=== PATIENT | male | born 1940 | race Caucasian/White ===

== ENCOUNTER 2018-06-06 22:06 | Inpatient (IN) ==
[2018-06-06] MEDS ORDERED: ONDANSETRON 4 MG/2 ML VIAL IV ONE (22:21)
[2018-06-06] MEDS ORDERED: LACTATED RINGERS 1,000 ML IV ONE (22:21)
--- NOTE | 2018-06-06 22:23 | Emergency Department Note ---
General Adult HPI - General Chief complaint: Dizziness Stated complaint: Dizzy and not feeling good Time Seen by Provider: 06/06/18 22:18 Mode of arrival: ambulatory - History of Present Illness HPI Narrative: This patient has felt ill for the last several days with some diarrhea cough nausea dizziness. He is coughing up some phlegm. His O2 saturation is 85% on room air. No history of chronic lung disease. - Related Data Home Medications Medication Instructions Recorded Confirmed aspirin 81 mg tablet,delayed 81 mg PO QDAY tab 08/21/14 06/02/18 release darbepoetin wilma 40 mcg/mL in 40 mcg SUB-Q Q4W PRN ml 03/03/18 06/02/18 polysorbate injection Previous Rx's Medication Instructions Recorded insulin lispro (U- 100) 100 See Dose Instructions SUB-Q 05/01/15 unit/mL subcutaneous solution .COMPLEX #3 ml simvastatin 20 mg tablet 20 mg PO QPM #90 tab 12/07/17 blood sugar diagnostic strips See Dose Instructions .ROUTE 12/08/17 .MEDSUPPLY #100 each doxazosin 4 mg tablet 8 mg PO QDAY 90 Days #180 tab 01/01/18 furosemide 40 mg tablet 40 mg PO QDAY #90 tab 02/04/18 allopurinol 100 mg tablet 100 mg PO QDAY #90 tab 03/19/18 amlodipine 10 mg tablet 10 mg PO QDAY #90 tab 03/19/18 glipizide ER 5 mg tablet, extended 5 mg PO BID #180 tab 03/19/18 release 24 hr pioglitazone 30 mg tablet 30 mg PO QDAY #90 tab 03/19/18 carvedilol 12.5 mg tablet 12.5 mg PO BID #180 tab 05/19/18 cholecalciferol (vitamin D3) 400 400 unit PO .qod #20 cap 06/02/18 unit capsule cyanocobalamin (vitamin B-12) 1,000 mcg PO QDAY #30 cap 06/02/18 1,000 mcg capsule furosemide 40 mg tablet 40 mg PO QAM PRN #20 tab 06/02/18 Allergies Allergy/AdvReac Type Severity Reaction Status Date / Time No Known Drug Allergies Allergy Verified 06/07/18 02:37 Review of Systems All systems ED: reviewed and negative except as stated. Past Medical History - Past Medical History PMF Narrative: Medical History (Last Reviewed 06/02/18 @ 11:23 by Becky Del Valle MD) Diabetes mellitus, type II (Chronic) Hypertension (Chronic) History of bladder cancer (Chronic) Adenomatous colon polyp (Chronic) Pure hypercholesterolemia (Chronic) Dizziness (Chronic) Fatigue (Chronic) Edema (Chronic) Anemia (Chronic) History of malignant neoplasm of urinary organ (Acute) Proteinuria (Chronic) Vitamin A deficiency (Acute) Hyperlipidemia (Chronic) Obesity (Acute) Dysmetabolic syndrome X (Acute) Hypercalcemia (Chronic) Hypertensive chronic kidney disease (Chronic) DDD (degenerative disc disease), lumbar (Acute) Chronic kidney disease, stage III (moderate) (Chronic) Carpal tunnel syndrome (Acute) Bone/cartilage disorder (Acute) Back pain (Acute) Anemia, iron deficiency (Acute) Past Surgical History (Last Reviewed 06/02/18 @ 11:23 by Becky Del Valle MD) History of diverticulitis (Acute) History of colonoscopy (Acute) History of cataract surgery (Acute) History of back surgery (Acute) Family History (Last Reviewed 06/02/18 @ 11:23 by Becky Del Valle MD) Father Cardiac disease Diabetes mellitus Renal failure Mother Diabetes mellitus Renal failure Hypertension Sister Diabetes mellitus Son Diabetes mellitus - Social History smoking status: Smokeless tobacco Physical Exam Limitations: no limitations General appearance: alert Head: atraumatic Eye: Present: normal appearance ENT: normal exam Neck: Present: normal inspection Chest: Present: normal inspection Respiratory: Present: normal lung sounds bilaterally Cardiovascular: Present: regular rate, normal rhythm, normal heart sounds Abdominal: Present: soft. Absent: distention, tenderness Neurological: Present: alert Psychiatric: Present: normal affect Skin: Present: warm, dry Course Vital Signs Temperature 99.0 F 06/06/18 22:07 Pulse Rate 114 H 06/06/18 22:07 Respiratory Rate 28 H 06/06/18 22:07 Blood Pressure 139/65 06/06/18 22:07 Pulse Oximetry (%) 88 L 06/06/18 22:07 Temperature 98.3 F 06/07/18 06:45 Pulse Rate 95 H 06/07/18 04:31 Respiratory Rate 20 06/07/18 06:45 Blood Pressure 129/62 06/07/18 06:45 Pulse Oximetry (%) 91 06/07/18 06:45 Medical Decision Making - [facility] Narrative Medical decision making narrative: This patient has a left-sided pneumonia and he will be admitted to the hospital by Dr. Martinez - Lab Data Lab results reviewed: Yes I reviewed the patient's lab results. Result diagrams: 06/06/18 22:36 06/06/18 22:36 Lab Results 06/06/18 06/06/18 06/06/18 Range/Units 22:36 22:36 22:36 WBC 36.9 H* (4.5-11.0) K/mcL RBC 3.38 L (4.50-5.90) M/mcL Hgb 9.5 L (13.5-16.5) g/dL Hct 30.2 L (41.0-55.0) % MCV 89.3 (80.0-100.0) fL MCH 28.2 (26.0-34.0) pg MCHC 31.6 (31.0-36.0) g/dL RDW 15.3 H (11.5-14.5) % Plt Count 223 (140-440) K/mcL MPV 9.6 (7.4-10.4) fL Gran % 29.6 L (38.0-78.0) % Lymph % (Auto) 66.4 H (15.5-49.0) % [place] % (Auto) 3.9 (1.0-12.0) % Eos % (Auto) 0 (0.0-7.0) % Baso % (Auto) 0.1 (0.0-2.0) % Gran # 10.9 H (1.8-8.0) K/mcL Lymph # (Auto) 24.5 H (1.5-4.8) K/mcL [place] # (Auto) 1.5 H (0.1-0.9) K/mcL Eos # (Auto) 0 (0.0-0.7) K/mcL Baso # (Auto) 0.1 (0.0-0.3) K/mcL Differential Comment VBG Lactic Acid 1.1 (0.5-2.0) mmol/L Sodium 134 (133-145) mmol/L Potassium 4.1 (3.3-5.1) mmol/L Chloride 104 (96-108) mmol/L Carbon Dioxide 18 L (22-30) mmol/L Anion Gap 12.0 (8-16) BUN 67 H (8-23) mg/dl Creatinine 2.6 H (0.7-1.2) mg/dl GFR Calculation 22 Glucose 219 H (70-105) mg/dL Calcium 10.2 (8.6-10.4) mg/dl Total Bilirubin 0.5 (0.0-1.0) mg/dL AST 45 H (0-37) U/l ALT 24 (0-40) U/l Alkaline Phosphatase 124 H (39-117) U/L Total Protein 5.9 (5.9-8.4) gm/dL Albumin 2.6 L (3.2-5.2) gm/dL Globulin 3.3 (2.2-3.7) gm/dL Albumin/Globulin Ratio 0.8 L (1.0-2.3) - Radiology Data Radiology results reviewed: Yes I reviewed the patient's radiology results. Disposition Pt seen by [facility]/PA only: No Clinical Impression: Pneumonia Disposition: Xfer As Inpt ([facility]) Condition: Undetermined
[2018-06-06] MEDS ORDERED: IPRATROPIUM/ALBUTEROL 3 ML AMPUL.NEB NEB ONE (23:13)
[2018-06-06 23:29] LABS: Basophils # (Auto) 0.1 K/mcL (0.0-0.3); Basophils % (Auto) 0.1 % (0.0-2.0); Eosinophils # (Auto) 0 K/mcL (0.0-0.7); Eosinophils % (Auto) 0 % (0.0-7.0); Granulocytes % (Auto) 29.6 % (38.0-78.0); Lymphocytes # (Auto) 24.5 K/mcL (1.5-4.8); Lymphocytes % (Auto) 66.4 % (15.5-49.0); Mean Cell Volume 89.3 fL (80.0-100.0); Mean Corpuscular HGB Conc 31.6 g/dL (31.0-36.0); Monocytes # (Auto) 1.5 K/mcL (0.1-0.9); Monocytes % (Auto) 3.9 % (1.0-12.0); Platelet Count 223 K/mcL (140-440); RBC 3.38 M/mcL (4.50-5.90); Red Cell Distribution Width 15.3 % (11.5-14.5)
[2018-06-06] MEDS ORDERED: cefTRIAXone 1 GM VIAL IV ONE (23:37)
[2018-06-06] MEDS ORDERED: LEVOFLOXACIN 750 MG/150 ML BAG IV ONE (23:37)
[2018-06-06 23:51] LABS: ALT/SGPT 24 U/l (0-40); Albumin 2.6 gm/dL (3.2-5.2); Albumin/Globulin Ratio 0.8 (1.0-2.3); Alkaline Phosphatase 124 U/L (39-117); Blood Urea Nitrogen 67 mg/dl (8-23)
[2018-06-07] MEDS ORDERED: DEXTROSE 50% 50 ML VIAL IV PRN ×2 (02:18→09:27)
[2018-06-07] MEDS ORDERED: DEXTROSE 31 GM ORAL.SUSP PO PRN ×2 (02:18→09:27)
[2018-06-07] MEDS ORDERED: INSULIN LISPRO 1 UNIT/0.01 ML UNIT SQ ONE (02:24)
[2018-06-07] MEDS ORDERED: INSULIN LISPRO 1 UNIT/0.01 ML UNIT SQ SCH (07:30)
--- NOTE | 2018-06-07 08:04 | Internal Med History&Physical ---
Medical - H&P: HPI Patient information: Note initiated : 06/07/18 at 8:01 am Service Date, if different from initiated Date: [] Patient: Keny Paul a 78 y/o M admitted on 06/07/18 for Dizzy, Not Feeling Good. Chief Complaint: [] History of present illness: Mr. Paul is a 78 year old M Who presented to the ED because of dizziness and not feeling well for the past for 5 days with diarrhea and some pain and he says lungs when coughing. Arrived with sats of 85% on room air. Patient reports about 2-3 weeks ago he started developing some cold symptoms sinus congestion and cough cough had some bloody mucus in it he also had shortness of breath especially with exertion. This has continued to progress his cough is productive which is a clear sputum now but last night he was so short of breath at he had to come in. He is also felt wheezy like he cannot get a deep breath. Has had some diarrhea,very weak and like lightheaded. Denies fever chills. He does have a history of chronic kidney disease stage III and receives Aranesp treatments every once in a while he says maybe every other month with Dr. Del Valle. He has history of mantle cell lymphoma diagnosed about a year ago and is following with [facility] and states they have not started treatment yet in her continue to watch him, sounds like he has a follow-up appointment in June. In the ED in triage was 85% on room air. Found to have left-sided dense infiltrate. He had leukocytosis, which she has a baseline but much higher. Renal function was little worse than usual. Blood pressure was okay. Review of Systems: Pertinent positives as above. Denies headache/fever/chills/nausea/vomiting/chest or abdominal pain. Remaining 10 po int review of systems reviewed negative Medical - H&P: PMH Medical history: Medical History (Last Reviewed 06/02/18 @ 11:23 by Becky Del Valle MD) Diabetes mellitus, type II (Chronic) Hypertension (Chronic) History of bladder cancer (Chronic) Adenomatous colon polyp (Chronic) Pure hypercholesterolemia (Chronic) Dizziness (Chronic) Fatigue (Chronic) Edema (Chronic) Anemia (Chronic) History of malignant neoplasm of urinary organ (Acute) Proteinuria (Chronic) Vitamin A deficiency (Acute) Hyperlipidemia (Chronic) Obesity (Acute) Dysmetabolic syndrome X (Acute) Hypercalcemia (Chronic) Hypertensive chronic kidney disease (Chronic) DDD (degenerative disc disease), lumbar (Acute) Chronic kidney disease, stage III (moderate) (Chronic) Carpal tunnel syndrome (Acute) Bone/cartilage disorder (Acute) Back pain (Acute) Anemia, iron deficiency (Acute) Past Surgical History (Last Reviewed 06/02/18 @ 11:23 by Becky Del Valle MD) History of diverticulitis (Acute) History of colonoscopy (Acute) History of cataract surgery (Acute) History of back surgery (Acute) Family History (Last Reviewed 06/02/18 @ 11:23 by Becky Del Valle MD) Father Cardiac disease Diabetes mellitus Renal failure Mother Diabetes mellitus Renal failure Hypertension Sister Diabetes mellitus Son Diabetes mellitus Social History (Last Updated 06/02/18 @ 12:17 by Becky Del Valle MD) -Quit smoking a year ago Denies alcohol use Does not use a cane or walker to get around Lives at home with his Medical - H&P: Meds Home Medications Medication Instructions Recorded Confirmed Type aspirin 81 mg tablet,delayed 81 mg PO QDAY tab 08/21/14 06/02/18 History release insulin lispro (U- 100) 100 See Dose Instructions SUB-Q 05/01/15 06/02/18 Rx unit/mL subcutaneous solution .COMPLEX #3 ml simvastatin 20 mg tablet 20 mg PO QPM #90 tab 12/07/17 06/02/18 Rx blood sugar diagnostic strips See Dose Instructions .ROUTE 12/08/17 03/03/18 Rx .MEDSUPPLY #100 each doxazosin 4 mg tablet 8 mg PO QDAY 90 Days #180 tab 01/01/18 06/02/18 Rx furosemide 40 mg tablet 40 mg PO QDAY #90 tab 02/04/18 06/02/18 Rx darbepoetin wilma 40 mcg/mL in 40 mcg SUB-Q Q4W PRN ml 03/03/18 06/02/18 History polysorbate injection allopurinol 100 mg tablet 100 mg PO QDAY #90 tab 03/19/18 06/02/18 Rx amlodipine 10 mg tablet 10 mg PO QDAY #90 tab 03/19/18 06/02/18 Rx glipizide ER 5 mg tablet, extended 5 mg PO BID #180 tab 03/19/18 06/02/18 Rx release 24 hr pioglitazone 30 mg tablet 30 mg PO QDAY #90 tab 03/19/18 06/02/18 Rx carvedilol 12.5 mg tablet 12.5 mg PO BID #180 tab 05/19/18 06/02/18 Rx cholecalciferol (vitamin D3) 400 400 unit PO .qod #20 cap 06/02/18 06/02/18 Rx unit capsule cyanocobalamin (vitamin B-12) 1,000 mcg PO QDAY #30 cap 06/02/18 06/02/18 Rx 1,000 mcg capsule furosemide 40 mg tablet 40 mg PO QAM PRN #20 tab 06/02/18 06/02/18 Rx Allergies Allergy/AdvReac Type Severity Reaction Status Date / Time No Known Drug Allergies Allergy Verified 06/07/18 02:37 Medical - H&P: Exam - Constitutional Vitals: Temp Pulse Resp BP Pulse Ox 98.3 F 95 H 20 129/62 91 06/07/18 06:45 06/07/18 04:31 06/07/18 06:45 06/07/18 06:45 06/07/18 06:45 Exam: General: Alert, Awake, No acute Distress Eyes/N/T: EOMI, PEERL, DMM Head/Neck: neck supple, normocephalic atraumatic CV: Mildly tacky, 1/6 SM Pulm: Diminished breath sounds on the left, no wheezing abd: soft, nontender, +BS x4 Ext: no clubbing/cyanosis. 1+ edema right lower extremity, mild on the left Neuro: Alert, no focal deficits, moves all extremities, CN 2-12 grossly intact, symmetrical strength b/l upper/lower, sensations intact b/l upper/lower Skin: warm/dry Medical - H&P: Reslt - Labs CBC & Chem 7: 06/06/18 22:36 06/06/18 22:36 Labs: Short CBC 06/06/18 Range/Units 22:36 WBC 36.9 H* (4.5-11.0) K/mcL Hgb 9.5 L (13.5-16.5) g/dL Hct 30.2 L (41.0-55.0) % Plt Count 223 (140-440) K/mcL BMP 06/06/18 22:36 Sodium 134 Potassium 4.1 Chloride 104 Carbon Dioxide 18 L BUN 67 H Creatinine 2.6 H Glucose 219 H Calcium 10.2 Liver Function 06/06/18 Range/Units 22:36 Total Bilirubin 0.5 (0.0-1.0) mg/dL AST 45 H (0-37) U/l ALT 24 (0-40) U/l Alkaline Phosphatase 124 H (39-117) U/L Albumin 2.6 L (3.2-5.2) gm/dL - Impressions Chest x-ray with left lower lobe infiltrate Medical - H&P: A/P - Narrative A/P Narrative: A: *PNA: *Acute hypoxic respiratory failure: *LYLE on CKD III: follows with dr. del valle *Recent diagnosis of mantle cell lymphoma 1-yr ago: shae with [facility] *HTN: *Obesity: *DM: * P: -Abx, pending BC/SC -pending PCT -IVF -IS/Acapella -Follow-up CT in the morning given his underlying CA -chest u/s for left effusion? -SSI -pt/ot -ppx: heparin Medical - H&P: Qual - VTE Deep Vein Thrombosis/Pulmonary Embolism Present on Admission: No
[2018-06-07] MEDS ORDERED: 0.9 % SODIUM CHLORIDE 1,000 ML IV SCH (08:15)
--- NOTE | 2018-06-07 08:29 | XRay Report ---
CLINICAL INFORMATION: cough COMPARISON: 05/12/2014 FINDINGS: Moderate cardiomegaly is unchanged. Mediastinum and pulmonary vessels are normal. Moderate consolidated infiltrate has developed in the left mid/lower lung with moderate pleural effusion. IMPRESSION: Moderate infiltrate left mid/lower lung with moderate effusion Interpreted and Authenticated by: Marcos Lopez 06/07/18
[2018-06-07] MEDS ORDERED: cefTRIAXone 1 GM VIAL IV ONE ×2 (09:00→09:27)
[2018-06-07] MEDS ORDERED: HEPARIN 5,000 UNIT/ML VIAL SQ SCH (09:00)
[2018-06-07] MEDS ORDERED: MAGNESIUM SULFATE 2 GM/50 ML BAG IV PRN (09:27)
[2018-06-07] MEDS ORDERED: IPRATROPIUM/ALBUTEROL 3 ML AMPUL.NEB NEB PRN (09:27)
[2018-06-07] MEDS ORDERED: PROMETHAZINE 25 MG TABLET PO PRN (09:27)
[2018-06-07] MEDS ORDERED: POTASSIUM CHLORIDE 40 MEQ in DEXTROSE 5% IN WATER 500 ML IV PRN (09:27)
[2018-06-07] MEDS ORDERED: POTASSIUM CHLORIDE 20 MEQ TABLET PO PRN ×2 (09:27)
[2018-06-07] MEDS ORDERED: ONDANSETRON 4 MG/2 ML VIAL IV PRN (09:27)
[2018-06-07 10:20] LABS: Hypochromasia 1+ (NONE SEEN); Lymphocytes % 47 % (15-49); Monocytes % (Manual) 7 % (1-12); Platelet Estimate NORMAL (NORMAL); RBC Morphology ABNORM (NORMAL); Segmented Neutrophils % 25 % (38-78)
[2018-06-07] MEDS: 0.9 % SODIUM CHLORIDE 1,000 ML IV SCH ×2 (10:48→20:42)
[2018-06-07] MEDS: AZITHROMYCIN 500 MG in DEXTROSE 5% IN WATER 250 ML IV SCH (10:48)
--- NOTE | 2018-06-07 12:04 | XRay Report ---
CLINICAL INFORMATION: Post Thoracentesis COMPARISON: 06/06/2018 2221 hours FINDINGS: Following left thoracentesis, there is no residual left pleural effusion. Moderate patchy infiltrate left mid and lower lung shows slight improvement. Moderate cardiomegaly is unchanged. Mediastinum and pulmonary vessels are normal. Small right pleural effusion appreciated. IMPRESSION: 1. No left pneumothorax or other complication following left thoracentesis. Small residual left pleural effusion 2. Moderate patchy left mid/lower lung infiltrate improving Interpreted and Authenticated by: Marcos Lopez 06/07/18
--- NOTE | 2018-06-07 12:18 | Ultrasound Report ---
Ultrasound-guided thoracentesis CLINICAL INFORMATION: Moderate left pleural effusion TECHNIQUE: Procedure and risks including possibility of bleeding, infection, and pneumothorax were explained to the patient. They understood and wished to proceed. With the patient in upright position, the fluid was first sonographically localized over the posterior left 10th intercostal space at posterior axillary line. The skin overlying this region was marked, prepped and locally anesthetized with 1% lidocaine using a 25-gauge needle to the level the parietal pleura. An 18-gauge [employer] needle was then advanced under sonographic guidance into the pleural fluid and approximately 575 cc of simple appearing transudative fluid was aspirated. Post procedure scanning shows only minimal residual fluid. Patient tolerated procedure well without apparent complication. Follow-up chest x-ray to be obtained IMPRESSION: Successful thoracentesis yielding 575 cc of transudative appearing simple pleural fluid. No apparent complication Interpreted and Authenticated by: Marcos Lopez 06/07/18
[2018-06-07 12:54] LABS: pH,Body Fluid 7.68
[2018-06-07 13:04] LABS: Glucose,Pleural Fluid 184 mg/dL; LDH,Pleural Fluid 97 U/L
[2018-06-07] MEDS: IPRATROPIUM/ALBUTEROL 3 ML AMPUL.NEB NEB SCH ×2 (13:18→19:11)
[2018-06-07 13:33] LABS: Appearance,Pleural Fluid CLEAR; Color,Pleural Fluid STRAW; Lymphocytes,Pleural Fluid 20 %; Monocytes,Pleural Fluid 8 %; Neutrophils,Pleural Fluid 31 %; Nucleated Cells,Pleural Fld 59 /cumm; RBC,Pleural Fluid < 50000 /cumm
[2018-06-07] MEDS ORDERED: cefTRIAXone 2 GM in DEXTROSE 5% IN WATER 50 ML IV SCH (15:00)
[2018-06-07] MEDS: INSULIN LISPRO 1 UNIT/0.01 ML UNIT SQ SCH ×3 (15:28→21:31)
[2018-06-07] MEDS: 0.9 % SODIUM CHLORIDE 10 ML SYRINGE IV SCH ×2 (15:29→20:59)
[2018-06-07] MEDS: FAMOTIDINE 20 MG TABLET PO SCH (20:53)
[2018-06-07] MEDS: HEPARIN 5,000 UNIT/ML VIAL SQ SCH (20:56)
[2018-06-08] MEDS: IPRATROPIUM/ALBUTEROL 3 ML AMPUL.NEB NEB SCH ×4 (00:10→19:05)
[2018-06-08] MEDS: PIPERACILLIN SODIUM/TAZOBACTAM 3.375 GM in DEXTROSE 5% IN WATER 50 ML IV SCH ×2 (00:10→05:51)
[2018-06-08 05:41] LABS: Basophils # (Auto) 0 K/mcL (0.0-0.3); Basophils % (Auto) 0.1 % (0.0-2.0); Eosinophils # (Auto) 0 K/mcL (0.0-0.7); Eosinophils % (Auto) 0.1 % (0.0-7.0); Granulocytes % (Auto) 24.1 % (38.0-78.0); Lymphocytes # (Auto) 18.1 K/mcL (1.5-4.8); Lymphocytes % (Auto) 72.9 % (15.5-49.0); Mean Corpuscular HGB Conc 31.6 g/dL (31.0-36.0); Monocytes # (Auto) 0.7 K/mcL (0.1-0.9); Monocytes % (Auto) 2.8 % (1.0-12.0); Platelet Count 182 K/mcL (140-440); RBC 2.97 M/mcL (4.50-5.90); Red Cell Distribution Width 15.4 % (11.5-14.5)
[2018-06-08] MEDS: 0.9 % SODIUM CHLORIDE 10 ML SYRINGE IV SCH ×2 (05:52→15:23)
[2018-06-08 05:59] LABS: ALT/SGPT 33 U/l (0-40); Albumin 2.2 gm/dL (3.2-5.2); Albumin/Globulin Ratio 0.8 (1.0-2.3); Alkaline Phosphatase 103 U/L (39-117); Bilirubin,Direct < 0.2 mg/dL (0.0-0.3); Blood Urea Nitrogen 58 mg/dl (8-23); Gamma Glutamyl Transpeptidase 20 U/L (8-61); Uric Acid 10.3 mg/dL (2.5-8.0)
--- NOTE | 2018-06-08 07:40 | Internal Med Progress Note ---
Medical - PN: Subj Patient information: Note initiated : 06/08/18 at 7:24 am Service Date, if different from initiated Date: [] Patient: Keny Paul a 78 y/o M admitted on 06/07/18 for Dizzy, Not Feeling Good. Chief Complaint: [] Interval history: Mr. Paul is a 78 year old M Who presented to the ED because of dizziness and not feeling well for the past for 5 days with diarrhea and some pain and he says lungs when coughing. Arrived with sats of 85% on room air. Patient reports about 2-3 weeks ago he started developing some cold symptoms sinus congestion and cough cough had some bloody mucus in it he also had shortness of breath especially with exertion. This has continued to progress his cough is productive which is a clear sputum now but last night he was so short of breath at he had to come in. He is also felt wheezy like he cannot get a deep breath. Has had some diarrhea,very weak and like lightheaded. Denies fever chills. He does have a history of chronic kidney disease stage III and receives Aranesp treatments every once in a while he says maybe every other month with Dr. Del Valle. He has history of mantle cell lymphoma diagnosed about a year ago and is following with [facility] and states they have not started treatment yet in her continue to watch him, sounds like he has a follow-up appointment in June. In the ED in triage was 85% on room air. Found to have left-sided dense infiltrate. He had leukocytosis, which she has a baseline but much higher. Renal function was little worse than usual. Blood pressure was okay. 06/08 Increased oxygen supplementation oximetric last night. But now down to 4 L nasal cannula with sats low 90s. He feels his cough is significantly decreased. He feels like his shortness of breath is also improved even though still requiring oxygen. Denies any other pains or complaints. Review of Systems: denies headache/fever/chills/nausea/vomiting/chest or abdominal pain/diarrhea. Otherwise see above. - Constitutional Vitals: Vital Signs Temp Pulse Resp BP Pulse Ox 99 F 85 22 138/62 93 06/08/18 03:49 06/08/18 06:41 06/08/18 06:41 06/08/18 03:49 06/08/18 06:39 Period Temp Pulse Resp BP Sys/Esposito Pulse Ox Last 24 Hr 98 F-102.7 F 85-109 18-32 103-143/43-65 90-93 Intake and Output 06/07/18 06/08/18 06/08/18 21:59 05:59 13:59 Intake Total 2840 800 50 Output Total 201 300 Balance 2639 500 50 Weight 94.256 kg Intake & Output: Intake & Output 06/07/18 06/08/18 06/08/18 21:59 05:59 13:59 Intake Total 2840 800 50 Output Total 201 300 Balance 2639 500 50 Weight 94.256 kg Intake: IV 2040 50 50 Sodium Chloride 0.9% 1,000 ml @ 990 100 mls/hr IV .Q10H [facility] Rx#: [id number] Zosyn 3.375 gm In Dextrose 5% 50 50 in Water 50 ml @ 100 mls/hr IV Q6H [facility] Rx#:[id number] Rocephin 2 gm In Dextrose 5% in 50 Water 50 ml @ 100 mls/hr IV Q24H [facility] Rx#:[id number] Oral 800 750 Output: Void Amount 201 300 Other: Urine Appearance Clear Urine Color Dark Yellow Light Amna Urine Odor Normal Stool Size Smear Stool Consistency Liquid # Voids 1 Exam: General: Alert, Awake, No acute Distress Eyes/N/T: EOMI, Head/Neck: neck supple, CV: RRR, 1/6 SM Pulm: rales more so on the left, no wheezing abd: soft, nontender, +BS x4 Ext: no clubbing/cyanosis. mile LE edema Neuro: Alert, no focal deficits, moves all extremities, Skin: warm/dry Medical - PN: Obj Da - Labs CBC & Chem 7: 06/08/18 04:05 06/08/18 04:05 Labs: Abnormal Lab Results 06/08/18 06/08/18 06/07/18 04:05 04:05 09:08 WBC 24.8 H RBC 2.97 L Hgb 8.4 L Hct 26.5 L RDW 15.4 H Gran % 24.1 L Lymph % (Auto) 72.9 H Gran # Lymph # (Auto) 18.1 H Glenn # (Auto) Seg Neutrophils % Reactive Lymphocytes RBC Morphology Hypochromasia PT 17.1 H INR 1.4 H Carbon Dioxide 18 L BUN 58 H Creatinine 2.5 H Glucose 150 H Uric Acid 10.3 H AST 46 H Alkaline Phosphatase Lactate Dehydrogenase 299 H Albumin 2.2 L Total Protein 5.1 L Albumin/Globulin Ratio 0.8 L 06/07/18 06/07/18 06/06/18 09:08 08:00 22:36 WBC RBC Hgb Hct RDW Gran % Lymph % (Auto) Gran # Lymph # (Auto) Glenn # (Auto) Seg Neutrophils % 25 L Reactive Lymphocytes 21 H RBC Morphology Abnorm A Hypochromasia 1+ A PT INR Carbon Dioxide 18 L BUN 67 H Creatinine 2.6 H Glucose 219 H Uric Acid AST 45 H Alkaline Phosphatase 124 H Lactate Dehydrogenase 267 H Albumin 2.6 L Total Protein Albumin/Globulin Ratio 0.8 L 06/06/18 22:36 WBC 36.9 H* RBC 3.38 L Hgb 9.5 L Hct 30.2 L RDW 15.3 H Gran % 29.6 L Lymph % (Auto) 66.4 H Gran # 10.9 H Lymph # (Auto) 24.5 H Glenn # (Auto) 1.5 H Seg Neutrophils % Reactive Lymphocytes RBC Morphology Hypochromasia PT INR Carbon Dioxide BUN Creatinine Glucose Uric Acid AST Alkaline Phosphatase Lactate Dehydrogenase Albumin Total Protein Albumin/Globulin Ratio Meds: Medications Albuterol/Ipratropium (Duoneb) 3 ml NEB Q6HRT [facility] Last Admin: 06/08/18 06:35 Dose: 3 ml Documented by: Albuterol/Ipratropium (Duoneb) 3 ml NEB Q4HP PRN PRN Reason: Shortness Of Breath Dextrose (Dextrose 50%) 0 ml IV UD PRN PRN Reason: Hypoglycemia Diagnostic Test (Pha) (Accu-Chek) 1 each FS ACHS [facility] Last Admin: 06/07/18 20:58 Dose: 1 each Documented by: Famotidine (Pepcid) 20 mg PO HS [facility] Last Admin: 06/07/18 20:53 Dose: 20 mg Documented by: Glucose (Insta-Glucose) 15 gm PO PRN PRN PRN Reason: Hypoglycemia Heparin Sodium (Porcine) (Heparin) 5,000 unit SQ Q12 [facility] Last Admin: 06/07/18 20:56 Dose: 5,000 unit Documented by: Azithromycin 500 mg/ Dextrose 250 mls @ 250 mls/hr IV Q24H [facility]; Protocol Stop: 06/09/18 10:59 Last Infusion: 06/07/18 11:48 Dose: Infused Documented by: Potassium Chloride 40 meq/ (Dextrose) 520 mls @ 130 mls/hr IV UD PRN PRN Reason: Potassium < 3 Magnesium Sulfate (Magnesium Sulfate) 2 gm in 50 mls @ 50 mls/hr IV UD PRN PRN Reason: Magnesium </= 1.6 Piperacillin Sod/Tazobactam (Sod 2.25 gm/ Dextrose) 50 mls @ 100 mls/hr IV Q6H [facility] Insulin Human Lispro (Humalog) 0 unit SQ ACHS [facility]; Protocol Last Admin: 06/07/18 21:31 Dose: 4 unit Documented by: Ondansetron HCl (Zofran) 4 mg IV Q4HP PRN PRN Reason: Nausea And Vomiting Potassium Chloride (Kdur) 40 meq PO UD PRN PRN Reason: Potssium is 3-3.5 Potassium Chloride (Kdur) 40 meq PO UD PRN PRN Reason: Potassium < 3 Promethazine HCl (Phenergan) 0 mg PO Q6HP PRN PRN Reason: Nausea And Vomiting Sodium Chloride (Saline Flush) 10 ml IV Q8 [facility] Last Admin: 06/08/18 05:52 Dose: Not Given Documented by: Medical - PN: A/P - Time Spent With Patient Total time spent is greater than 50% in coordination of care (as documented) at patient's floor/unit and/or counseling patient: - Narrative A/P Narrative: A: *PNA (NACHO/LLL dense consolidation noted on CT): - *Left pleural effusion: -s/p thoracentesis of 575cc, transudate by Light's criteria. *Acute hypoxic respiratory failure: 2/2 above -currently 4L NC sats low 90's *?underlying COPD: *LYLE on CKD III: follows with dr. del valle *Anemia, chronic: *Recent diagnosis of mantle cell lymphoma 1-yr ago: [facility] *h/o leukocytosis: 2/2 mantle cell lymphoma: has upcoming appt with [facility] *HTN: *Obesity: *DM: P: -Abx, broaden b/c of persistent fevers and PCT -pending BC/SC -IS/Acapella -SSI -pt/ot -f/u with cancer center as scheduled -ppx: heparin Medical - PN: Qual - VTE Deep Vein Thrombosis/Pulmonary Embolism Present on Admission: No
[2018-06-08] MEDS: HEPARIN 5,000 UNIT/ML VIAL SQ SCH ×2 (07:54→21:18)
[2018-06-08] MEDS: INSULIN LISPRO 1 UNIT/0.01 ML UNIT SQ SCH ×4 (07:54→21:39)
--- NOTE | 2018-06-08 08:40 | Cat Scan Report ---
CLINICAL INFORMATION: Shortness of breath and cough. History of lymphoma COMPARISON: PET CT 03/10/2018 TECHNIQUE: 0.625 mm axial slices were obtained from the lung apices through the bases without intravenous contrast. 2.5 mm Sagittal, coronal and axial reformatted images were processed and reviewed at bone, lung and soft tissue windows. 7 mm axial MIP images were also reconstructed to optimize pulmonary nodule detection.The exam was performed using radiation dose optimization techniques including, but not limited to, automated exposure control, adjustment of the mA and/or kV according to patient size and use of iterative reconstruction technique. FINDINGS: Pulmonary parenchymal windows show a large consolidated infiltrate throughout the posterior segment of the left upper lobe with moderate-sized more patchy infiltrate in the anterior segment left upper lobe, lingula and throughout the left lower lobe. In the right lung, smaller patchy infiltrates or atelectasis noted in both posterior upper, middle and lower lobes. Moderate right and small left pleural effusions are present. Mediastinal windows show mild enlargement central pulmonary arteries suggesting pulmonary hypertension. Noncontrast thoracic aorta is normal in contour and caliber. The heart is mildly enlarged with scattered calcific plaque in the coronary arteries and also calcification of both the mitral annulus and aortic valves. Since the comparison CT PET three months prior, multiple large lymph nodes have developed in the lower mediastinum. The largest conglomerate spans 3 cm in the subcarinal region. There are also enlarged lymph nodes in the AP window, periaortic arch and lower paratracheal regions. Previously, there was no adenopathy in these areas. Esophagus is normal. Thyroid is unremarkable. Bones and soft tissues the chest wall are normal. Images through the abdomen show moderate splenic enlargement: 14 x 7 cm. it is unchanged from previous study however. The visualized noncontrasted liver, adrenal glands and pancreas are normal. IMPRESSION: 1. Large consolidated infiltrate throughout the posterior segment left upper lobe with moderate patchy infiltrate in the anterior segment left upper lobe, lingula and left lower lobe with a small left pleural effusion. Right lung demonstrates only minimal patchy infiltrates predominantly in the posterior upper, middle lower lobes. Moderate right pleural effusion noted. Infection or aspiration is suspected. 2. Multiple enlarged lower mediastinal lymph nodes developing since comparison CT three months prior.These are likely benign reactive lymph nodes related to infection rather than recurrent lymphoma. 3. Moderate splenomegaly - stable Interpreted and Authenticated by: Marcos Lopez 06/08/18
[2018-06-08] MEDS ORDERED: cefTRIAXone 2 GM in DEXTROSE 5% IN WATER 50 ML IV SCH (09:00)
[2018-06-08] MEDS ORDERED: AZITHROMYCIN 500 MG in DEXTROSE 5% IN WATER 250 ML IV SCH (10:00)
[2018-06-08] MEDS: ALLOPURINOL 100 MG TABLET PO SCH (11:20)
[2018-06-08] MEDS: AZITHROMYCIN 500 MG in DEXTROSE 5% IN WATER 250 ML IV SCH (11:21)
[2018-06-08] MEDS: PIPERACILLIN SODIUM/TAZOBACTAM 2.25 GM in DEXTROSE 5% IN WATER 50 ML IV SCH ×2 (12:31→17:55)
[2018-06-08] MEDS ORDERED: FUROSEMIDE 40 MG TABLET PO PRN (12:34)
[2018-06-08] MEDS: FAMOTIDINE 20 MG TABLET PO SCH (21:17)
[2018-06-08] MEDS: CARVEDILOL 6.25 MG TABLET PO SCH (21:17)
[2018-06-08] MEDS: SIMVASTATIN 20 MG TABLET PO SCH (21:17)
[2018-06-09] MEDS: IPRATROPIUM/ALBUTEROL 3 ML AMPUL.NEB NEB SCH ×4 (00:51→19:41)
[2018-06-09] MEDS: 0.9 % SODIUM CHLORIDE 10 ML SYRINGE IV SCH ×4 (00:51→20:49)
[2018-06-09] MEDS: PIPERACILLIN SODIUM/TAZOBACTAM 2.25 GM in DEXTROSE 5% IN WATER 50 ML IV SCH ×5 (00:51→23:05)
[2018-06-09 05:51] LABS: Basophils # (Auto) 0 K/mcL (0.0-0.3); Basophils % (Auto) 0.2 % (0.0-2.0); Eosinophils # (Auto) 0.1 K/mcL (0.0-0.7); Eosinophils % (Auto) 0.3 % (0.0-7.0); Lymphocytes # (Auto) 16.5 K/mcL (1.5-4.8); Lymphocytes % (Auto) 75.8 % (15.5-49.0); Mean Cell Volume 88.6 fL (80.0-100.0); Mean Corpuscular HGB Conc 31.4 g/dL (31.0-36.0); Monocytes # (Auto) 0.8 K/mcL (0.1-0.9); Monocytes % (Auto) 3.7 % (1.0-12.0); Platelet Count 178 K/mcL (140-440); RBC 2.91 M/mcL (4.50-5.90); Red Cell Distribution Width 15.4 % (11.5-14.5)
[2018-06-09 06:04] LABS: ALT/SGPT 46 U/l (0-40); Albumin 1.9 gm/dL (3.2-5.2); Albumin/Globulin Ratio 0.6 (1.0-2.3); Alkaline Phosphatase 123 U/L (39-117); Bilirubin,Direct < 0.2 mg/dL (0.0-0.3); Blood Urea Nitrogen 63 mg/dl (8-23); Gamma Glutamyl Transpeptidase 26 U/L (8-61); Uric Acid 9.9 mg/dL (2.5-8.0)
[2018-06-09] MEDS: INSULIN LISPRO 1 UNIT/0.01 ML UNIT SQ SCH ×4 (07:30→20:49)
--- NOTE | 2018-06-09 08:04 | Internal Med Progress Note ---
Medical - PN: Subj Patient information: Note initiated : 06/09/18 at 7:54 am Service Date, if different from initiated Date: [] Patient: Keny Paul a 78 y/o M admitted on 06/07/18 for Dizzy, Not Feeling Good. Chief Complaint: [] Interval history: Mr. Paul is a 78 year old M Who presented to the ED because of dizziness and not feeling well for the past for 5 days with diarrhea and some pain and he says lungs when coughing. Arrived with sats of 85% on room air. Patient reports about 2-3 weeks ago he started developing some cold symptoms sinus congestion and cough cough had some bloody mucus in it he also had shortness of breath especially with exertion. This has continued to progress his cough is productive which is a clear sputum now but last night he was so short of breath at he had to come in. He is also felt wheezy like he cannot get a deep breath. Has had some diarrhea,very weak and like lightheaded. Denies fever chills. He does have a history of chronic kidney disease stage III and receives Aranesp treatments every once in a while he says maybe every other month with Dr. Nash. He has history of mantle cell lymphoma diagnosed about a year ago and is following with [facility] and states they have not started treatment yet in her continue to watch him, sounds like he has a follow-up appointment in June. In the ED in triage was 85% on room air. Found to have left-sided dense infiltrate. He had leukocytosis, which she has a baseline but much higher. Renal function was little worse than usual. Blood pressure was okay. 06/08 Increased oxygen supplementation oximetric last night. But now down to 4 L nasal cannula with sats low 90s. He feels his cough is significantly decreased. He feels like his shortness of breath is also improved even though still requiring oxygen. Denies any other pains or complaints. 06/09 Patient states he feels better with no real cough and says his shortness of breath is better however he still on 4-6 L of either nasal cannula or oxygen mask. Nursing staff state he is better oxygenating when he sitting up. Urine output is low however he is urinated over the half few times over the past couple days, so we do not have accurate outputs. But his creatinine has not improved in fact is slightly worsened. Trying to obtain urine studies and Place [facility]. He renal ultrasound just finished. Chest x-ray with some interstitial edema. Will check BNP although likely to be abnormal in the setting of renal dysfunction and will try Lasix. As well as nephrology consult Denies any other complaints. Review of Systems: denies headache/fever/chills/nausea/vomiting/chest or abdominal pain/diarrhea. Otherwise see above. - Constitutional Vitals: Vital Signs Temp Pulse Resp BP Pulse Ox 97.2 F 71 26 H 117/53 96 06/09/18 03:59 06/09/18 03:59 06/09/18 03:59 06/09/18 03:59 06/09/18 03:59 Period Temp Pulse Resp BP Sys/Esposito Pulse Ox Last 24 Hr 97.2 F-98.7 F 71-98 16-28 92-130/47-64 86-96 Intake and Output 06/08/18 06/09/18 06/09/18 21:59 05:59 13:59 Intake Total 170 150 Balance 170 150 Weight 94.574 kg Intake & Output: Intake & Output 06/08/18 06/09/18 06/09/18 21:59 05:59 13:59 Intake Total 170 150 Balance 170 150 Weight 94.574 kg Intake: IV 50 50 Zosyn 2.25 gm In Dextrose 5% in 50 50 Water 50 ml @ 100 mls/hr IV Q6H [facility] Rx#:[id number] Oral 120 100 Other: Stool Size Small Stool Color Brown Green Stool Consistency Soft Watery # Voids 1 Exam: General: Alert, Awake, No acute Distress Eyes/N/T: EOMI, Head/Neck: neck supple, CV: RRR, 1/6 SM Pulm: rales b/l, no wheezing abd: soft, nontender, +BS x4 Ext: no clubbing/cyanosis. 1+ LLE edema, no edema RLE Neuro: Alert, no focal deficits, moves all extremities, Skin: warm/dry Medical - PN: Obj Da - Labs CBC & Chem 7: 06/09/18 03:55 06/09/18 03:55 Labs: Abnormal Lab Results 06/09/18 06/09/18 06/08/18 03:55 03:55 04:05 WBC 21.8 H RBC 2.91 L Hgb 8.1 L Hct 25.8 L RDW 15.4 H Gran % 20.0 L Lymph % (Auto) 75.8 H Gran # Lymph # (Auto) 16.5 H Bollinger # (Auto) Seg Neutrophils % Reactive Lymphocytes RBC Morphology Hypochromasia PT INR Carbon Dioxide 18 L 18 L BUN 63 H 58 H Creatinine 2.9 H 2.5 H Glucose 208 H 150 H Uric Acid 9.9 H 10.3 H AST 54 H 46 H Alkaline Phosphatase 123 H ALT 46 H Lactate Dehydrogenase 295 H 299 H Albumin 1.9 L 2.2 L Total Protein 4.9 L 5.1 L Albumin/Globulin Ratio 0.6 L 0.8 L 06/08/18 06/07/18 06/07/18 04:05 09:08 09:08 WBC 24.8 H RBC 2.97 L Hgb 8.4 L Hct 26.5 L RDW 15.4 H Gran % 24.1 L Lymph % (Auto) 72.9 H Gran # Lymph # (Auto) 18.1 H Bollinger # (Auto) Seg Neutrophils % 25 L Reactive Lymphocytes 21 H RBC Morphology Abnorm A Hypochromasia 1+ A PT 17.1 H INR 1.4 H Carbon Dioxide BUN Creatinine Glucose Uric Acid AST Alkaline Phosphatase ALT Lactate Dehydrogenase Albumin Total Protein Albumin/Globulin Ratio 06/07/18 06/06/18 06/06/18 08:00 22:36 22:36 WBC 36.9 H* RBC 3.38 L Hgb 9.5 L Hct 30.2 L RDW 15.3 H Gran % 29.6 L Lymph % (Auto) 66.4 H Gran # 10.9 H Lymph # (Auto) 24.5 H Bollinger # (Auto) 1.5 H Seg Neutrophils % Reactive Lymphocytes RBC Morphology Hypochromasia PT INR Carbon Dioxide 18 L BUN 67 H Creatinine 2.6 H Glucose 219 H Uric Acid AST 45 H Alkaline Phosphatase 124 H ALT Lactate Dehydrogenase 267 H Albumin 2.6 L Total Protein Albumin/Globulin Ratio 0.8 L Meds: Medications Albuterol/Ipratropium (Duoneb) 3 ml NEB Q6HRT [facility] Last Admin: 06/09/18 07:15 Dose: 3 ml Documented by: Albuterol/Ipratropium (Duoneb) 3 ml NEB Q4HP PRN PRN Reason: Shortness Of Breath Allopurinol (Zyloprim) 100 mg PO DAILY [facility] Last Admin: 06/08/18 11:20 Dose: 100 mg Documented by: Aspirin (Aspirin) 81 mg PO DAILY [facility] Carvedilol (Coreg) 6.25 mg PO BID [facility] Last Admin: 06/08/18 21:17 Dose: 6.25 mg Documented by: Dextrose (Dextrose 50%) 0 ml IV UD PRN PRN Reason: Hypoglycemia Diagnostic Test (Pha) (Accu-Chek) 1 each FS [facility] Last Admin: 06/09/18 07:28 Dose: 1 each Documented by: Doxazosin Mesylate (Cardura) 8 mg PO QDAY [facility] Famotidine (Pepcid) 20 mg PO HS [facility] Last Admin: 06/08/18 21:17 Dose: 20 mg Documented by: Furosemide (Lasix) 40 mg PO DAILYP PRN PRN Reason: Edema Glucose (Insta-Glucose) 15 gm PO PRN PRN PRN Reason: Hypoglycemia Heparin Sodium (Porcine) (Heparin) 5,000 unit SQ Q12 [facility] Last Admin: 06/08/18 21:18 Dose: 5,000 unit Documented by: Azithromycin 500 mg/ Dextrose 250 mls @ 250 mls/hr IV Q24H [facility]; Protocol Stop: 06/09/18 10:59 Last Infusion: 06/08/18 12:21 Dose: Infused Documented by: Potassium Chloride 40 meq/ (Dextrose) 520 mls @ 130 mls/hr IV UD PRN PRN Reason: Potassium < 3 Magnesium Sulfate (Magnesium Sulfate) 2 gm in 50 mls @ 50 mls/hr IV UD PRN PRN Reason: Magnesium </= 1.6 Piperacillin Sod/Tazobactam (Sod 2.25 gm/ Dextrose) 50 mls @ 100 mls/hr IV Q6H [facility] Last Admin: 06/09/18 05:54 Dose: 100 mls/hr Documented by: Insulin Human Lispro (Humalog) 0 unit SQ [facility]; Protocol Last Admin: 06/09/18 07:30 Dose: 6 unit Documented by: Ondansetron HCl (Zofran) 4 mg IV Q4HP PRN PRN Reason: Nausea And Vomiting Potassium Chloride (Kdur) 40 meq PO UD PRN PRN Reason: Potssium is 3-3.5 Potassium Chloride (Kdur) 40 meq PO UD PRN PRN Reason: Potassium < 3 Promethazine HCl (Phenergan) 0 mg PO Q6HP PRN PRN Reason: Nausea And Vomiting Simvastatin (Zocor) 20 mg PO QPM [facility] Last Admin: 06/08/18 21:17 Dose: 20 mg Documented by: Sodium Chloride (Saline Flush) 10 ml IV Q8 [facility] Last Admin: 06/09/18 05:54 Dose: 10 ml Documented by: Medical - PN: A/P - Time Spent With Patient Total time spent is greater than 50% in coordination of care (as documented) at patient's floor/unit and/or counseling patient: - Narrative A/P Narrative: A: *PNA (NACHO/LLL dense consolidation noted on CT): -afebrile o/n, PCT starting to improve *Left pleural effusion: -s/p thoracentesis of 575cc, transudate by Light's criteria. *Acute hypoxic respiratory failure: 2/2 above -currently 6L oxymask o/n *?underlying COPD: *LYLE on CKD III: follows with dr. nash -no improvement -2.9<2.5<2.6 *Anemia, chronic: *Recent diagnosis of mantle cell lymphoma 1-yr ago: follows with [facility] *h/o leukocytosis: 2/2 mantle cell lymphoma: has upcoming appt with [facility] *HTN: *Obesity: *DM: *BPH: on doxazosin P: -Abx, broadened (06/08) b/c of persistent fevers and PCT elevation -pending BC/SC -IS/Acapella -consult nephro, renal u/s and urine studies pending -bnp, lasix -SSI -pt/ot -f/u with cancer center as scheduled -ppx: heparin Medical - PN: Qual - VTE Deep Vein Thrombosis/Pulmonary Embolism Present on Admission: No
--- NOTE | 2018-06-09 08:31 | XRay Report ---
CLINICAL INFORMATION: hypoxia COMPARISON: 06/07/2018 FINDINGS: Moderate cardiomegaly is unchanged. Mediastinum is unremarkable. Pulmonary vessels are mildly distended compared with 2011 baseline film. There is also mild diffuse interstitial edema. Moderate patchy infiltrate in the left mid and lower lung show slight worsening worsening. Small recurrent left pleural effusion noted IMPRESSION: Mild CHF Moderate patchy left mid and lower lung infiltrate slight worsening. Small left pleural effusion also worsening. Interpreted and Authenticated by: Marcos Lopez 06/09/18
[2018-06-09] MEDS: DOXAZOSIN 4 MG TABLET PO SCH (10:25)
[2018-06-09] MEDS: ALLOPURINOL 100 MG TABLET PO SCH (10:25)
[2018-06-09] MEDS: ASPIRIN 81 MG TAB.CHEW PO SCH (10:25)
[2018-06-09] MEDS: AZITHROMYCIN 500 MG in DEXTROSE 5% IN WATER 250 ML IV SCH (10:25)
[2018-06-09] MEDS: HEPARIN 5,000 UNIT/ML VIAL SQ SCH ×2 (10:25→20:48)
[2018-06-09] MEDS: CARVEDILOL 6.25 MG TABLET PO SCH ×2 (10:26→20:49)
[2018-06-09] MEDS ORDERED: ALBUMIN HUMAN 12.5 GM/50 ML BAG IV ONE (10:45)
[2018-06-09] MEDS ORDERED: FUROSEMIDE 40 MG/4 ML VIAL IV ONE (10:45)
--- NOTE | 2018-06-09 10:47 | Ultrasound Report ---
CLINICAL INFORMATION: lj COMPARISON: None. FINDINGS: Both kidneys are normal in size, configuration and position: The right is 12.9 x 6 cm and the left 12 x 6 cm. Scattered cysts seen in both kidneys ranging up to 8 cm inferior pole left kidney. These are unchanged from 03/10/2018 PET/CT. Renal parenchyma is hyperechoic compatible with medical renal disease. No hydronephrosis or solid lesion. Arterial blood flow is grossly normal to both kidneys on color Doppler. Urinary bladder 179 cc. The patient was unable to void. No focal bladder lesions. Prostate volume is normal: 15 cc. IMPRESSION: Hyperechoic kidneys compatible with medical renal disease Scattered simple cysts both kidneys - stable Normal urinary bladder and prostate Interpreted and Authenticated by: Marcos Lopez 06/09/18
--- NOTE | 2018-06-09 11:39 | Nephrology Consult Note ---
History of Present Illness - Reason for Consult Patient information: Note initiated : 06/09/18 at 11:37 am Patient: Keny Paul 78 y/o M admitted on 06/07/18 for Dizzy, Not Feeling Good. Consult date: 06/09/18 acute renal failure, chronic renal failure, metabolic acidosis Requesting physician: Ivan Martinez - Chief Complaint Weakness - History of Present Illness Keny Paul is a 78-year-old male with coronary artery disease by calcifications on CT, chronic diastolic heart failure (Echo on 06/05/14: LVEF 55%, no segmental wall motion abnormalities, Grade I diastolic dysfunction), hypertension, hyperlipidemia, diabetes mellitus type 2, chronic kidney disease stage 3 (followed by Dr. Del Valle), chronic anemia due to kidney disease and iron deficiency, admitted on 06/06/18 for pneumonia. Review of Systems Constitutional: lethargy, weakness Nose, mouth and throat: no nasal congestion, no sore throat Cardiovascular: no chest pain, no palpatations Respiratory: cough, dyspnea Gastrointestinal: no abdominal pain, no nausea Genitourinary: no dysuria, no hematuria Musculoskeletal: no joint swelling, no neck pain Integumentary: no rash, no jaundice Neurological: no confusion, no focal weakness Psychiatric: no anxiety, no panic attacks Endocrine: no cold intolerance, no heat intolerance Hematologic/Lymphatic: no easy bleeding, no easy bruising Allergic/Immunologic: no tongue swelling, no uticaria Past History Past medical history: Medical History (Last Reviewed 06/02/18 @ 11:23 by Becky Del Valle MD) Diabetes mellitus, type II (Chronic) Hypertension (Chronic) History of bladder cancer (Chronic) Adenomatous colon polyp (Chronic) Pure hypercholesterolemia (Chronic) Dizziness (Chronic) Fatigue (Chronic) Edema (Chronic) Anemia (Chronic) History of malignant neoplasm of urinary organ (Acute) Proteinuria (Chronic) Vitamin A deficiency (Acute) Hyperlipidemia (Chronic) Obesity (Acute) Dysmetabolic syndrome X (Acute) Hypercalcemia (Chronic) Hypertensive chronic kidney disease (Chronic) DDD (degenerative disc disease), lumbar (Acute) Chronic kidney disease, stage III (moderate) (Chronic) Carpal tunnel syndrome (Acute) Bone/cartilage disorder (Acute) Back pain (Acute) Anemia, iron deficiency (Acute) Past surgical history: Past Surgical History (Last Reviewed 06/02/18 @ 11:23 by Becky Del Valle MD) History of diverticulitis (Acute) History of colonoscopy (Acute) History of cataract surgery (Acute) History of back surgery (Acute) Past family history: Family History (Last Reviewed 06/02/18 @ 11:23 by Becky Del Valle MD) Father Cardiac disease Diabetes mellitus Renal failure Mother Diabetes mellitus Renal failure Hypertension Sister Diabetes mellitus Son Diabetes mellitus Past social history: Social History (Last Updated 06/02/18 @ 12:17 by Becky Del Valle MD) No Social History Section defined Medications and Allergies Home Medications Medication Instructions Recorded Confirmed Type aspirin 81 mg tablet,delayed 81 mg PO QDAY tab 08/21/14 06/08/18 History release insulin lispro (U- 100) 100 See Dose Instructions SUB-Q 05/01/15 06/08/18 Rx unit/mL subcutaneous solution .COMPLEX #3 ml simvastatin 20 mg tablet 20 mg PO QPM #90 tab 12/07/17 06/08/18 Rx doxazosin 4 mg tablet 8 mg PO QDAY 90 Days #180 tab 01/01/18 06/08/18 Rx furosemide 40 mg tablet 40 mg PO QDAY #90 tab 02/04/18 06/08/18 Rx allopurinol 100 mg tablet 100 mg PO QDAY #90 tab 03/19/18 06/08/18 Rx amlodipine 10 mg tablet 10 mg PO QDAY #90 tab 03/19/18 06/08/18 Rx glipizide ER 5 mg tablet, extended 5 mg PO BID #180 tab 03/19/18 06/08/18 Rx release 24 hr pioglitazone 30 mg tablet 30 mg PO QDAY #90 tab 03/19/18 06/08/18 Rx carvedilol 12.5 mg tablet 12.5 mg PO BID #180 tab 05/19/18 06/08/18 Rx cholecalciferol (vitamin D3) 400 400 unit PO .qod #20 cap 06/02/18 06/08/18 Rx unit capsule cyanocobalamin (vitamin B-12) 1,000 mcg PO QDAY #30 cap 06/02/18 06/08/18 Rx 1,000 mcg capsule furosemide 40 mg tablet 40 mg PO QAM PRN #20 tab 06/02/18 06/08/18 Rx Allergies Allergy/AdvReac Type Severity Reaction Status Date / Time No Known Drug Allergies Allergy Verified 06/07/18 02:37 Exam - Vital Signs Vital signs: Temp Pulse Resp BP Pulse Ox 97.2 F 71 26 H 117/53 96 06/09/18 08:00 06/09/18 08:00 06/09/18 08:00 06/09/18 08:00 06/09/18 08:00 - General Appearance General appearance: chronically ill, fatigue EENT: mucous membranes dry Neck: supple Respiratory: course breath sounds Cardiology: no edema Gastrointestinal: no tenderness Integumentary: warm and dry Neurologic: no focal deficit, alert and oriented x3 Musculoskeletal: no deformities Psychiatric: mood/affect appropriate, cooperative Results - Lab Results 06/09/18 03:55 06/09/18 03:55 Most recent lab results Calcium 9.8 mg/dl (8.6-10.4) 06/09/18 03:55 Phosphorus 3.2 mg/dL (2.7-4.5) 06/09/18 03:55 Magnesium 2.0 mg/dL (1.6-2.5) 06/09/18 03:55 Assessment and Plan (1) Acute on chronic renal failure Keny Paul is a 78-year-old male with coronary artery disease by calcifications on CT, chronic diastolic heart failure (Echo on 06/05/14: LVEF 55%, no segmental wall motion abnormalities, Grade I diastolic dysfunction), hypertension, hyperlipidemia, diabetes mellitus type 2, chronic kidney disease stage 3 (followed by Dr. Del Valle), chronic anemia due to kidney disease and iron deficiency, admitted on 06/06/18 for pneumonia. Acute kidney injury on chronic kidney disease stage 3, with metabolic acidosis, present on arrival. There is no recent history of IV contrast administration or NSAID use. Intravascular volume depletion unlikely. Work up: US Renal on 06/09/18: Hyperechoic kidneys compatible with medical renal disease. Scattered simple cysts both kidneys - stable. Normal urinary bladder and prostate. Progress: Urine output: 200 ml reported in the past 24 hours. power catheter placed. Creatinine increased from 2.5 to 2.9 in the past 24 hours. Metabolic acidosis. No significant fluid overload. No uremic symptoms. Plan: No acute hemodialysis need. Avoid NSAIDs, nephrotoxic medications and IV contrast. Monitor BMP and urine output. Sodium Bicarbonate 1300 mg PO TID for metabolic acidosis. Status: Acute Priority: Medium Qualifiers: Acute renal failure type: unspecified Chronic kidney disease stage: stage 3 (moderate) Qualified Code(s): N17.9 - Acute kidney failure, unspecified; N18.3 - Chronic kidney disease, stage 3 (moderate) (2) Metabolic acidosis Please see above Status: Acute Priority: Medium
[2018-06-09 11:47] LABS: Appearance,Urine HAZY; Bacteria,Urine 0 /hpf (0); Bilirubin,Urine NEG (NEG); Color,Urine YELLOW; Glucose,Urine (UA) 50 mg/dL (NEG); Leukocyte Esterase,Urine NEG /uL (NEG); Mucus,Urine FEW /hpf (0); Protein,Urine 100 mg/dL (NEG); Specific Gravity,Urine 1.018 (1.000-1.035); Urine Amorphous Crystals MOD /hpf (0); Urine Blood 0.03 mg/dL (<0.03); Urine RBC 3 /hpf (0-1); Urine Squamous Epithelial Cell < 1 /hpf (0-4); Urine WBC 3 /hpf (0-4); Urobilinogen,Urine NEG (NEG)
[2018-06-09 11:52] LABS: Urea Nitrogen, Urine 822 mg/dL
[2018-06-09] MEDS: SODIUM BICARBONATE 650 MG TABLET PO SCH ×2 (15:53→20:49)
[2018-06-09] MEDS: SIMVASTATIN 20 MG TABLET PO SCH (20:49)
[2018-06-09] MEDS: FAMOTIDINE 20 MG TABLET PO SCH (20:49)
[2018-06-10] MEDS: IPRATROPIUM/ALBUTEROL 3 ML AMPUL.NEB NEB SCH ×4 (00:46→20:55)
[2018-06-10 06:03] LABS: Mean Cell Volume 88.9 fL (80.0-100.0); Mean Corpuscular HGB Conc 31.6 g/dL (31.0-36.0); Platelet Count 200 K/mcL (140-440)
[2018-06-10 06:14] LABS: ALT/SGPT 45 U/l (0-40); Albumin 2.1 gm/dL (3.2-5.2); Albumin/Globulin Ratio 0.7 (1.0-2.3); Alkaline Phosphatase 153 U/L (39-117); Bilirubin,Direct < 0.2 mg/dL (0.0-0.3); Blood Urea Nitrogen 67 mg/dl (8-23); Gamma Glutamyl Transpeptidase 35 U/L (8-61); Uric Acid 9.7 mg/dL (2.5-8.0)
[2018-06-10] MEDS: 0.9 % SODIUM CHLORIDE 10 ML SYRINGE IV SCH ×3 (06:15→20:54)
[2018-06-10] MEDS: PIPERACILLIN SODIUM/TAZOBACTAM 2.25 GM in DEXTROSE 5% IN WATER 50 ML IV SCH ×4 (06:15→23:19)
--- NOTE | 2018-06-10 06:50 | Nephrology Progress Note ---
Subjective Patient information: Note initiated : 06/10/18 at 6:48 am Patient: Keny Paul 78 y/o M admitted on 06/07/18 for Dizzy, Not Feeling Good. Chief Complaint: Weakness Pertinent ROS: Weakness Shortness of breath Cough No chest pain No abdominal pain Trace edema Objective - Vital Signs Vital signs: Vital Signs Temp Pulse Pulse Resp BP BP Pulse Ox 06/10/18 04:00 97.4 F 73 28 H 121/66 91 06/10/18 00:46 72 24 H 06/09/18 23:00 98.7 F 73 29 H 118/54 95 06/09/18 19:46 97.5 F 69 28 H 115/61 100 06/09/18 19:40 71 28 H 06/09/18 15:58 98.2 F 74 114/58 88 L 06/09/18 13:20 77 20 06/09/18 12:40 76 20 96 06/09/18 11:53 97.8 F 06/09/18 11:44 85 14 131/62 100 06/09/18 08:00 97.2 F 71 26 H 117/53 96 06/09/18 07:10 76 18 Intake and Output 06/09/18 06/10/18 06/10/18 21:59 05:59 13:59 Intake Total 50 650 Output Total 546 1000 Balance -496 -350 Intake: IV 50 50 Zosyn 2.25 gm In Dextrose 5% in 50 50 Water 50 ml @ 100 mls/hr IV Q6H [facility] Rx#:[id number] Oral 600 Output: Urine Catheter Amount 545 1000 Void Amount 1 Other: Meal Lunch Percent of Meal Consumed 100% Urine Appearance Clear Urine Color Bright Yellow Bright Yellow Urine Odor Strong Normal Stool Size Moderate Stool Color Brown Stool Consistency Soft # Bowel Movements 1 Weight 212 lb 8 oz Intake & Output: Intake & Output 06/09/18 06/10/18 06/10/18 21:59 05:59 13:59 Intake Total 50 650 Output Total 546 1000 Balance -496 -350 Weight 212 lb 8 oz Intake: IV 50 50 Zosyn 2.25 gm In Dextrose 5% in 50 50 Water 50 ml @ 100 mls/hr IV Q6H [facility] Rx#:[id number] Oral 600 Output: Urine Catheter Amount 545 1000 Void Amount 1 Other: Meal Lunch Percent of Meal Consumed 100% Urine Appearance Clear Urine Color Bright Yellow Bright Yellow Urine Odor Strong Normal Stool Size Moderate Stool Color Brown Stool Consistency Soft # Bowel Movements 1 - General Appearance General appearance: fatigue EENT: mucous membranes dry Neck: supple Respiratory: course breath sounds Cardiology: edema Gastrointestinal: no tenderness Integumentary: warm and dry Neurologic: no focal deficit, alert and oriented x3 Musculoskeletal: no deformities Psychiatric: mood/affect appropriate, cooperative - Lab 06/10/18 04:08 06/10/18 04:08 Most recent lab results Calcium 9.7 mg/dl (8.6-10.4) 06/10/18 04:08 Phosphorus 2.7 mg/dL (2.7-4.5) 06/10/18 04:08 Magnesium 2.0 mg/dL (1.6-2.5) 06/10/18 04:08 Assessment and Plan (1) Acute on chronic renal failure Keny Paul is a 78-year-old male with coronary artery disease by calcifications on CT, chronic diastolic heart failure (Echo on 06/05/14: LVEF 55%, no segmental wall motion abnormalities, Grade I diastolic dysfunction), hypertension, hyperlipidemia, diabetes mellitus type 2, chronic kidney disease stage 3 (followed by Dr. Del Valle), chronic anemia due to kidney disease and iron deficiency, admitted on 06/06/18 for pneumonia. Acute kidney injury on chronic kidney disease stage 3, with metabolic acidosis, present on arrival. Work up: US Renal on 06/09/18: Hyperechoic kidneys compatible with medical renal disease. Scattered simple cysts both kidneys - stable. Normal urinary bladder and prostate. Progress: Urine output: 1545 ml reported in the past 24 hours after Hughes catheter placement. Creatinine increased from 2.9 to 3.1 in the past 24 hours. Metabolic acidosis, improved with Sodium Bicarbonate 1300 mg PO TID. No significant fluid overload. No uremic symptoms. Plan: No acute hemodialysis need. Avoid NSAIDs, nephrotoxic medications and IV contrast. Monitor BMP and urine output. Status: Acute Priority: Medium Qualifiers: Acute renal failure type: unspecified Chronic kidney disease stage: stage 3 (moderate) Qualified Code(s): N17.9 - Acute kidney failure, unspecified; N18.3 - Chronic kidney disease, stage 3 (moderate) (2) Metabolic acidosis Please see above Status: Acute Priority: Medium
[2018-06-10 06:59] LABS: Eosinophils % (Manual) 1 % (0-7); Lymphocytes % 74 % (15-49); Monocytes % (Manual) 3 % (1-12); Ovalocytes 1+ (NONE SEEN); Platelet Estimate NORMAL (NORMAL); RBC Morphology ABNORM (NORMAL); Segmented Neutrophils % 22 % (38-78)
[2018-06-10] MEDS ORDERED: predniSONE 10 MG TABLET PO ONE (07:02)
--- NOTE | 2018-06-10 07:04 | Internal Med Progress Note ---
Medical - PN: Subj Patient information: Note initiated : 06/10/18 at 6:58 am Service Date, if different from initiated Date: [] Patient: Keny Paul a 78 y/o M admitted on 06/07/18 for Dizzy, Not Feeling Good. Chief Complaint: [] Interval history: Mr. Paul is a 78 year old M Who presented to the ED because of dizziness and not feeling well for the past for 5 days with diarrhea and some pain and he says lungs when coughing. Arrived with sats of 85% on room air. Patient reports about 2-3 weeks ago he started developing some cold symptoms sinus congestion and cough cough had some bloody mucus in it he also had shortness of breath especially with exertion. This has continued to progress his cough is productive which is a clear sputum now but last night he was so short of breath at he had to come in. He is also felt wheezy like he cannot get a deep breath. Has had some diarrhea,very weak and like lightheaded. Denies fever chills. He does have a history of chronic kidney disease stage III and receives Aranesp treatments every once in a while he says maybe every other month with Dr. Nash. He has history of mantle cell lymphoma diagnosed about a year ago and is following with [facility] and states they have not started treatment yet in her continue to watch him, sounds like he has a follow-up appointment in June. In the ED in triage was 85% on room air. Found to have left-sided dense infiltrate. He had leukocytosis, which she has a baseline but much higher. Renal function was little worse than usual. Blood pressure was okay. 06/08 Increased oxygen supplementation oximetric last night. But now down to 4 L nasal cannula with sats low 90s. He feels his cough is significantly decreased. He feels like his shortness of breath is also improved even though still requiring oxygen. Denies any other pains or complaints. 06/09 Patient states he feels better with no real cough and says his shortness of breath is better however he still on 4-6 L of either nasal cannula or oxygen mask. Nursing staff state he is better oxygenating when he sitting up. Urine output is low however he is urinated over the half few times over the past couple days, so we do not have accurate outputs. But his creatinine has not improved in fact is slightly worsened. Trying to obtain urine studies and Place Hughes. He renal ultrasound just finished. Chest x-ray with some interstitial edema. Will check BNP although likely to be abnormal in the setting of renal dysfunction and will try Lasix. As well as nephrology consult Denies any other complaints. 06/10 No overnight events. Patient feels a little better every day. Denies cough. Ambulated to the bathroom with minimal dyspnea. States he continues to feel better. No new complaints. Was on oxygen mask overnight, felt to be a mouth breather. When I went in there he took off his oxygen mask was sitting up in bed talking to me as sats are remaining around, anywhere from 91-93%. Lung sounds improved. Creatinine no improvement. Nephrology continues to follow Review of Systems: denies headache/fever/chills/nausea/vomiting/chest or abdominal pain/diarrhea. Otherwise see above. - Constitutional Vitals: Vital Signs Temp Pulse Resp BP Pulse Ox 97.4 F 73 28 H 121/66 91 06/10/18 04:00 06/10/18 04:00 06/10/18 04:00 06/10/18 04:00 06/10/18 04:00 Period Temp Pulse Resp BP Sys/Esposito Pulse Ox Last 24 Hr 97.2 F-98.7 F 69-85 14-29 114-131/53-66 88-100 Intake and Output 06/09/18 06/10/18 06/10/18 21:59 05:59 13:59 Intake Total 50 650 Output Total 546 1000 Balance -496 -350 Weight 96.388 kg Intake & Output: Intake & Output 06/09/18 06/10/18 06/10/18 21:59 05:59 13:59 Intake Total 50 650 Output Total 546 1000 Balance -496 -350 Weight 96.388 kg Intake: IV 50 50 Zosyn 2.25 gm In Dextrose 5% in 50 50 Water 50 ml @ 100 mls/hr IV Q6H [facility] Rx#:[id number] Oral 600 Output: Urine Catheter Amount 545 1000 Void Amount 1 Other: Meal Lunch Percent of Meal Consumed 100% Urine Appearance Clear Urine Color Bright Yellow Bright Yellow Urine Odor Strong Normal Stool Size Moderate Stool Color Brown Stool Consistency Soft # Bowel Movements 1 Exam: General: Alert, Awake, No acute Distress Eyes/N/T: EOMI, Head/Neck: neck supple, CV: RRR, 1/6 SM Pulm: Left base rales, right clearing up rales b/l, no wheezing abd: soft, nontender, +BS x4 Ext: no clubbing/cyanosis. No lower extremity edema Neuro: Alert, no focal deficits, moves all extremities, Skin: warm/dry Medical - PN: Obj Da - Labs CBC & Chem 7: 06/10/18 04:08 06/10/18 04:08 Labs: Abnormal Lab Results 06/10/18 06/10/18 06/09/18 04:08 04:08 11:34 WBC 21.8 H RBC 2.80 L Hgb 7.9 L Hct 24.9 L RDW 15.0 H Gran % Lymph % (Auto) Lymph # (Auto) Seg Neutrophils % Reactive Lymphocytes RBC Morphology Hypochromasia PT INR Carbon Dioxide 20 L BUN 67 H Creatinine 3.1 H Glucose 207 H Uric Acid 9.7 H AST ALT 45 H Alkaline Phosphatase 153 H Lactate Dehydrogenase NT-Pro-B Natriuret Pep 92575.0 H Total Protein 5.0 L Albumin 2.1 L Albumin/Globulin Ratio 0.7 L Triglycerides 154 H Urine Protein Urine Glucose (UA) Urine Occult Blood Urine RBC Amorphous Crystals 06/09/18 06/09/18 06/09/18 11:15 03:55 03:55 WBC 21.8 H RBC 2.91 L Hgb 8.1 L Hct 25.8 L RDW 15.4 H Gran % 20.0 L Lymph % (Auto) 75.8 H Lymph # (Auto) 16.5 H Seg Neutrophils % Reactive Lymphocytes RBC Morphology Hypochromasia PT INR Carbon Dioxide 18 L BUN 63 H Creatinine 2.9 H Glucose 208 H Uric Acid 9.9 H AST 54 H ALT 46 H Alkaline Phosphatase 123 H Lactate Dehydrogenase 295 H NT-Pro-B Natriuret Pep Total Protein 4.9 L Albumin 1.9 L Albumin/Globulin Ratio 0.6 L Triglycerides Urine Protein 100 A Urine Glucose (UA) 50 A Urine Occult Blood 0.03 A Urine RBC 3 H Amorphous Crystals Mod A 06/08/18 06/08/18 06/07/18 04:05 04:05 09:08 WBC 24.8 H RBC 2.97 L Hgb 8.4 L Hct 26.5 L RDW 15.4 H Gran % 24.1 L Lymph % (Auto) 72.9 H Lymph # (Auto) 18.1 H Seg Neutrophils % Reactive Lymphocytes RBC Morphology Hypochromasia PT 17.1 H INR 1.4 H Carbon Dioxide 18 L BUN 58 H Creatinine 2.5 H Glucose 150 H Uric Acid 10.3 H AST 46 H ALT Alkaline Phosphatase Lactate Dehydrogenase 299 H NT-Pro-B Natriuret Pep Total Protein 5.1 L Albumin 2.2 L Albumin/Globulin Ratio 0.8 L Triglycerides Urine Protein Urine Glucose (UA) Urine Occult Blood Urine RBC Amorphous Crystals 06/07/18 06/07/18 09:08 08:00 WBC RBC Hgb Hct RDW Gran % Lymph % (Auto) Lymph # (Auto) Seg Neutrophils % 25 L Reactive Lymphocytes 21 H RBC Morphology Abnorm A Hypochromasia 1+ A PT INR Carbon Dioxide BUN Creatinine Glucose Uric Acid AST ALT Alkaline Phosphatase Lactate Dehydrogenase 267 H NT-Pro-B Natriuret Pep Total Protein Albumin Albumin/Globulin Ratio Triglycerides Urine Protein Urine Glucose (UA) Urine Occult Blood Urine RBC Amorphous Crystals Meds: Medications Albuterol/Ipratropium (Duoneb) 3 ml NEB Q6HRT [facility] Last Admin: 06/10/18 00:46 Dose: 3 ml Documented by: Albuterol/Ipratropium (Duoneb) 3 ml NEB Q4HP PRN PRN Reason: Shortness Of Breath Allopurinol (Zyloprim) 100 mg PO DAILY [facility] Last Admin: 06/09/18 10:25 Dose: 100 mg Documented by: Aspirin (Aspirin) 81 mg PO DAILY [facility] Last Admin: 06/09/18 10:25 Dose: 81 mg Documented by: [facility] Dextrose (Dextrose 50%) 0 ml IV UD PRN PRN Reason: Hypoglycemia Diagnostic Test (Pha) (Accu-Chek) 1 each FS ACHS [facility] Last Admin: 06/09/18 20:00 Dose: 1 each Documented by: Doxazosin Mesylate (Cardura) 8 mg PO QDAY [facility] Last Admin: 06/09/18 10:25 Dose: 8 mg Documented by: Famotidine (Pepcid) 20 mg PO HS [facility] Last Admin: 06/09/18 20:49 Dose: 20 mg Documented by: Furosemide (Lasix) 40 mg PO DAILYP PRN PRN Reason: Edema Glucose (Insta-Glucose) 15 gm PO PRN PRN PRN Reason: Hypoglycemia Heparin Sodium (Porcine) (Heparin) 5,000 unit SQ Q12 [facility] Last Admin: 06/09/18 20:48 Dose: 5,000 unit Documented by: Potassium Chloride 40 meq/ (Dextrose) 520 mls @ 130 mls/hr IV UD PRN PRN Reason: Potassium < 3 Piperacillin Sod/Tazobactam (Sod 2.25 gm/ Dextrose) 50 mls @ 100 mls/hr IV Q6H [facility] Last Admin: 06/10/18 06:15 Dose: 100 mls/hr Documented by: Insulin Human Lispro (Humalog) 0 unit SQ ACHS [facility]; Protocol Last Admin: 06/09/18 20:49 Dose: 6 unit Documented by: Ondansetron HCl (Zofran) 4 mg IV Q4HP PRN PRN Reason: Nausea And Vomiting Promethazine HCl (Phenergan) 0 mg PO Q6HP PRN PRN Reason: Nausea And Vomiting Simvastatin (Zocor) 20 mg PO QPM [facility] Last Admin: 06/09/18 20:49 Dose: 20 mg Documented by: Sodium Bicarbonate (Sodium Bicarbonate) 1,300 mg PO TID [facility] Last Admin: 06/09/18 20:49 Dose: 1,300 mg Documented by: Sodium Chloride (Saline Flush) 10 ml IV Q8 [facility] Last Admin: 06/10/18 06:15 Dose: 10 ml Documented by: Medical - PN: A/P - Time Spent With Patient Total time spent is greater than 50% in coordination of care (as documented) at patient's floor/unit and/or counseling patient: - Narrative A/P Narrative: A: *PNA (NACHO/LLL dense consolidation noted on CT): -afebrile o/n, PCT starting to improve *Left pleural effusion: -s/p thoracentesis of 575cc, transudate by Light's criteria. *?CHF: *Acute hypoxic respiratory failure: 2/2 above -weaning down O2 *?underlying COPD: *LYLE on CKD III: follows with dr. nash -no improvement -3.1<2.9<2.5<2.6 *Anemia, chronic: *Recent diagnosis of mantle cell lymphoma 1-yr ago: follows with [facility] *h/o leukocytosis: 2/2 mantle cell lymphoma: has upcoming app[facility] *HTN: *Obesity: *DM: *BPH: on doxazosin P: -Abx, broadened (06/08) b/c of persistent fevers and PCT elevation -pending BC/SC -IS/Acapella -nephro following -?lasix today -echo pending -monitor H&H -SSI -pt/ot -f/u with cancer center as scheduled -ppx: heparin Medical - PN: Qual - VTE Deep Vein Thrombosis/Pulmonary Embolism Present on Admission: No
--- NOTE | 2018-06-10 08:05 | XRay Report ---
CLINICAL INFORMATION: chf and left infiltrate COMPARISON: 06/09/2018 FINDINGS: Moderate cardiomegaly is unchanged. Mediastinum is unremarkable. Pulmonary vessels remain mildly distended. Interstitial edema has partially cleared since yesterday. Moderate patchy left mid/lower lung infiltrates show slight worsening. Small bilateral pleural effusions noted IMPRESSION: Mild CHF - improved. There is less interstitial edema on today's exam Moderate left mid/lower lung infiltrate - slight worsening Interpreted and Authenticated by: Marcos Lopez 06/10/18
[2018-06-10] MEDS: INSULIN LISPRO 1 UNIT/0.01 ML UNIT SQ SCH ×4 (08:07→20:53)
[2018-06-10] MEDS: DOXAZOSIN 4 MG TABLET PO SCH (08:55)
[2018-06-10] MEDS: ASPIRIN 81 MG TAB.CHEW PO SCH (08:56)
[2018-06-10] MEDS: ALLOPURINOL 100 MG TABLET PO SCH (08:56)
[2018-06-10] MEDS: CARVEDILOL 6.25 MG TABLET PO SCH ×2 (08:56→17:14)
[2018-06-10] MEDS: SODIUM BICARBONATE 650 MG TABLET PO SCH ×3 (08:56→20:54)
[2018-06-10] MEDS: HEPARIN 5,000 UNIT/ML VIAL SQ SCH ×2 (08:57→20:53)
[2018-06-10] MEDS ORDERED: ALBUMIN HUMAN 12.5 GM/50 ML BAG IV ONE (09:50)
[2018-06-10] MEDS ORDERED: FUROSEMIDE 40 MG/4 ML VIAL IV ONE (09:50)
[2018-06-10] MEDS: INSULIN GLARGINE, HUMAN 1 UNIT/0.01 ML SQ SCH (10:09)
[2018-06-10] MEDS: SIMVASTATIN 20 MG TABLET PO SCH (20:53)
[2018-06-10] MEDS: FAMOTIDINE 20 MG TABLET PO SCH (20:54)
[2018-06-11] MEDS: IPRATROPIUM/ALBUTEROL 3 ML AMPUL.NEB NEB SCH ×4 (00:32→18:39)
[2018-06-11] MEDS: PIPERACILLIN SODIUM/TAZOBACTAM 2.25 GM in DEXTROSE 5% IN WATER 50 ML IV SCH ×4 (05:53→23:57)
[2018-06-11] MEDS: 0.9 % SODIUM CHLORIDE 10 ML SYRINGE IV SCH ×3 (05:53→21:18)
--- NOTE | 2018-06-11 06:57 | Internal Med Progress Note ---
Medical - PN: Subj Patient information: Note initiated : 06/11/18 at 6:50 am Service Date, if different from initiated Date: [] Patient: Keny Paul a 78 y/o M admitted on 06/07/18 for Dizzy, Not Feeling Good. Chief Complaint: [] Interval history: Mr. Paul is a 78 year old M Who presented to the ED because of dizziness and not feeling well for the past for 5 days with diarrhea and some pain and he says lungs when coughing. Arrived with sats of 85% on room air. Patient reports about 2-3 weeks ago he started developing some cold symptoms sinus congestion and cough cough had some bloody mucus in it he also had shortness of breath especially with exertion. This has continued to progress his cough is productive which is a clear sputum now but last night he was so short of breath at he had to come in. He is also felt wheezy like he cannot get a deep breath. Has had some diarrhea,very weak and like lightheaded. Denies fever chills. He does have a history of chronic kidney disease stage III and receives Aranesp treatments every once in a while he says maybe every other month with Dr. Nash. He has history of mantle cell lymphoma diagnosed about a year ago and is following with [facility] and states they have not started treatment yet in her continue to watch him, sounds like he has a follow-up appointment in June. In the ED in triage was 85% on room air. Found to have left-sided dense infiltrate. He had leukocytosis, which she has a baseline but much higher. Renal function was little worse than usual. Blood pressure was okay. 06/08 Increased oxygen supplementation oximetric last night. But now down to 4 L nasal cannula with sats low 90s. He feels his cough is significantly decreased. He feels like his shortness of breath is also improved even though still requiring oxygen. Denies any other pains or complaints. 06/09 Patient states he feels better with no real cough and says his shortness of breath is better however he still on 4-6 L of either nasal cannula or oxygen mask. Nursing staff state he is better oxygenating when he sitting up. Urine output is low however he is urinated over the half few times over the past couple days, so we do not have accurate outputs. But his creatinine has not improved in fact is slightly worsened. Trying to obtain urine studies and Place [facility]. He renal ultrasound just finished. Chest x-ray with some interstitial edema. Will check BNP although likely to be abnormal in the setting of renal dysfunction and will try Lasix. As well as nephrology consult Denies any other complaints. 06/10 No overnight events. Patient feels a little better every day. Denies cough. Ambulated to the bathroom with minimal dyspnea. States he continues to feel better. No new complaints. Was on oxygen mask overnight, felt to be a mouth breather. When I went in there he took off his oxygen mask was sitting up in bed talking to me as sats are remaining around, anywhere from 91-93%. Lung sounds improved. Creatinine no improvement. Nephrology continues to follow 06/11 Patient feels like he is getting close to normal but not quite, was on 3L of nasal cannula last night. Denies cough. Worked well with physical therapy t leann and did not feel short of breath. Overall improving. I's and O's are inaccurate as he has urinated over the hat and when the Hughes was and he was emptying the bag in the sink. Review of Systems: denies headache/fever/chills/nausea/vomiting/chest or abdominal pain/diarrhea. Otherwise see above. - Constitutional Vitals: Vital Signs Temp Pulse Resp BP Pulse Ox 97.5 F 68 20 144/61 93 06/11/18 03:50 06/11/18 03:50 06/11/18 03:50 06/11/18 03:50 06/11/18 03:50 Period Temp Pulse Resp BP Sys/Esposito Pulse Ox Last 24 Hr 97.4 F-97.8 F 64-117 16-22 133-144/58-63 93-98 Intake and Output 06/10/18 06/11/18 06/11/18 21:59 05:59 13:59 Intake Total 850 400 50 Output Total 175 Balance 850 225 50 Weight 94.211 kg Intake & Output: Intake & Output 06/10/18 06/11/18 06/11/18 21:59 05:59 13:59 Intake Total 850 400 50 Output Total 175 Balance 850 225 50 Weight 94.211 kg Intake: IV 50 50 50 Zosyn 2.25 gm In Dextrose 5% in 50 50 50 Water 50 ml @ 100 mls/hr IV Q6H [facility] Rx#:[id number] Oral 800 350 Output: Void Amount 175 Other: Urine Appearance Clear Urine Color Bright Yellow Stool Size Small # Voids 1 1 # Bowel Movements 1 Exam: General: Alert, Awake, No acute Distress Eyes/N/T: EOMI, Head/Neck: neck supple, CV: RRR, 1/6 SM Pulm: Left base diminished with mild rales rales, right clear, no wheezing abd: soft, nontender, +BS x4 Ext: no clubbing/cyanosis. No lower extremity edema Neuro: Alert, no focal deficits, moves all extremities, Skin: warm/dry Medical - PN: Obj Da - Labs CBC & Chem 7: 06/11/18 07:08 06/11/18 07:07 Labs: Abnormal Lab Results 06/10/18 06/10/18 06/09/18 04:08 04:08 11:34 WBC 21.8 H RBC 2.80 L Hgb 7.9 L Hct 24.9 L RDW 15.0 H Gran % Lymph % (Auto) Lymph # (Auto) Seg Neutrophils % 22 L Lymphocytes % 74 H RBC Morphology Abnorm A Polychromasia 1+ A Ovalocytes 1+ A Carbon Dioxide 20 L BUN 67 H Creatinine 3.1 H Glucose 207 H Uric Acid 9.7 H AST ALT 45 H Alkaline Phosphatase 153 H Lactate Dehydrogenase NT-Pro-B Natriuret Pep 77748.0 H Total Protein 5.0 L Albumin 2.1 L Albumin/Globulin Ratio 0.7 L Triglycerides 154 H Urine Protein Urine Glucose (UA) Urine Occult Blood Urine RBC Amorphous Crystals 06/09/18 06/09/18 06/09/18 11:15 03:55 03:55 WBC 21.8 H RBC 2.91 L Hgb 8.1 L Hct 25.8 L RDW 15.4 H Gran % 20.0 L Lymph % (Auto) 75.8 H Lymph # (Auto) 16.5 H Seg Neutrophils % Lymphocytes % RBC Morphology Polychromasia Ovalocytes Carbon Dioxide 18 L BUN 63 H Creatinine 2.9 H Glucose 208 H Uric Acid 9.9 H AST 54 H ALT 46 H Alkaline Phosphatase 123 H Lactate Dehydrogenase 295 H NT-Pro-B Natriuret Pep Total Protein 4.9 L Albumin 1.9 L Albumin/Globulin Ratio 0.6 L Triglycerides Urine Protein 100 A Urine Glucose (UA) 50 A Urine Occult Blood 0.03 A Urine RBC 3 H Amorphous Crystals Mod A Meds: Medications Albuterol/Ipratropium (Duoneb) 3 ml NEB Q6HRT [facility] Last Admin: 06/11/18 00:32 Dose: 3 ml Documented by: Albuterol/Ipratropium (Duoneb) 3 ml NEB Q4HP PRN PRN Reason: Shortness Of Breath Allopurinol (Zyloprim) 100 mg PO DAILY [facility] Last Admin: 06/10/18 08:56 Dose: 100 mg Documented by: Aspirin (Aspirin) 81 mg PO DAILY [facility] Last Admin: 06/10/18 08:56 Dose: 81 mg Documented by: Carvedilol (Coreg) 6.25 mg PO BIDCC [facility] Last Admin: 06/10/18 17:14 Dose: 6.25 mg Documented by: Dextrose (Dextrose 50%) 0 ml IV UD PRN PRN Reason: Hypoglycemia Diagnostic Test (Pha) (Accu-Chek) 1 each FS [facility] Last Admin: 06/10/18 20:53 Dose: 1 each Documented by: Doxazosin Mesylate (Cardura) 8 mg PO QDAY [facility] Last Admin: 06/10/18 08:55 Dose: 8 mg Documented by: Famotidine (Pepcid) 20 mg PO HS [facility] Last Admin: 06/10/18 20:54 Dose: 20 mg Documented by: Furosemide (Lasix) 40 mg PO DAILYP PRN PRN Reason: Edema Glucose (Insta-Glucose) 15 gm PO PRN PRN PRN Reason: Hypoglycemia Heparin Sodium (Porcine) (Heparin) 5,000 unit SQ Q12 [facility] Last Admin: 06/10/18 20:53 Dose: 5,000 unit Documented by: Potassium Chloride 40 meq/ (Dextrose) 520 mls @ 130 mls/hr IV UD PRN PRN Reason: Potassium < 3 Piperacillin Sod/Tazobactam (Sod 2.25 gm/ Dextrose) 50 mls @ 100 mls/hr IV Q6H [facility] Last Infusion: 06/11/18 06:23 Dose: Infused Documented by: Insulin Glargine (Lantus) 10 unit SQ DAILY [facility] Last Admin: 06/10/18 10:09 Dose: 10 unit Documented by: Insulin Human Lispro (Humalog) 0 unit SQ [facility]; Protocol Last Admin: 06/10/18 20:53 Dose: 10 unit Documented by: Ondansetron HCl (Zofran) 4 mg IV Q4HP PRN PRN Reason: Nausea And Vomiting [facility] Promethazine HCl (Phenergan) 0 mg PO Q6HP PRN PRN Reason: Nausea And Vomiting Simvastatin (Zocor) 20 mg PO QPM [facility] Last Admin: 06/10/18 20:53 Dose: 20 mg Documented by: Sodium Bicarbonate (Sodium Bicarbonate) 1,300 mg PO TID [facility] Last Admin: 06/10/18 20:54 Dose: 1,300 mg Documented by: Sodium Chloride (Saline Flush) 10 ml IV Q8 [facility] Last Admin: 06/11/18 05:53 Dose: 10 ml Documented by: Medical - PN: A/P - Time Spent With Patient Total time spent is greater than 50% in coordination of care (as documented) at patient's floor/unit and/or counseling patient: - Narrative A/P Narrative: A: *PNA (NACHO/LLL dense consolidation noted on CT): -afebrile o/n, PCT improved *Left pleural effusion: -s/p thoracentesis (06/07) of 575cc, transudate by Light's criteria. -culter negative, cytology ___ *Acute on chronic systolic(45-50)/Diastolic(?III) CHF: -echo EF 45-50%, diastolic dysfxn, PAH moderate -i/o's inaccurate (patient missing hat and was dumping Hughes when it was in place) -CXR improving *Acute hypoxic respiratory failure: 2/2 above -weaning down O2 2-3L *?underlying COPD: *LYLE on CKD III: follows with dr. nash. Now Improving -no improvement -2.5<3.1<2.9<2.5<2.6 *Anemia, chronic: *Recent diagnosis of mantle cell lymphoma 1-yr ago: follows with [facility] *h/o leukocytosis: 2/2 mantle cell lymphoma: has upcoming appt [facility] *HTN: on coreg/norvasc *Obesity: *DM: *BPH: on doxazosin P: -Abx, broadened (06/08) b/c of persistent fevers and PCT elevation -pending BC/SC -IS/Acapella -nephro following -s/p lasix - -cont BB -monitor H&H -SSI -pt/ot -f/u with cancer center as scheduled -ppx: heparin Medical - PN: Qual - VTE Deep Vein Thrombosis/Pulmonary Embolism Present on Admission: No
[2018-06-11] MEDS: INSULIN LISPRO 1 UNIT/0.01 ML UNIT SQ SCH ×4 (07:07→21:24)
[2018-06-11 07:49] LABS: Basophils # (Auto) 0 K/mcL (0.0-0.3); Basophils % (Auto) 0.1 % (0.0-2.0); Eosinophils # (Auto) 0.1 K/mcL (0.0-0.7); Eosinophils % (Auto) 0.7 % (0.0-7.0); Granulocytes % (Auto) 23.8 % (38.0-78.0); Lymphocytes # (Auto) 15.1 K/mcL (1.5-4.8); Lymphocytes % (Auto) 69.5 % (15.5-49.0); Mean Cell Volume 88.3 fL (80.0-100.0); Mean Corpuscular HGB Conc 31.6 g/dL (31.0-36.0); Monocytes # (Auto) 1.3 K/mcL (0.1-0.9); Monocytes % (Auto) 5.9 % (1.0-12.0); Platelet Count 216 K/mcL (140-440); Red Cell Distribution Width 15.4 % (11.5-14.5)
[2018-06-11 08:05] LABS: Blood Urea Nitrogen 62 mg/dl (8-23)
[2018-06-11] MEDS: INSULIN GLARGINE, HUMAN 1 UNIT/0.01 ML SQ SCH (08:14)
[2018-06-11] MEDS: HEPARIN 5,000 UNIT/ML VIAL SQ SCH ×2 (08:15→21:17)
[2018-06-11] MEDS: ASPIRIN 81 MG TAB.CHEW PO SCH (08:16)
[2018-06-11] MEDS: SODIUM BICARBONATE 650 MG TABLET PO SCH ×3 (08:16→21:17)
[2018-06-11] MEDS: ALLOPURINOL 100 MG TABLET PO SCH (08:16)
[2018-06-11] MEDS: DOXAZOSIN 4 MG TABLET PO SCH (08:16)
[2018-06-11] MEDS: CARVEDILOL 6.25 MG TABLET PO SCH ×2 (08:17→16:48)
[2018-06-11] MEDS: predniSONE 10 MG TABLET PO SCH (08:17)
--- NOTE | 2018-06-11 08:19 | Nephrology Progress Note ---
Subjective Patient information: Note initiated : 06/11/18 at 8:16 am Patient: Keny Paul 78 y/o M admitted on 06/07/18 for Dizzy, Not Feeling Good. Chief Complaint: Weakness. Pertinent ROS: Feels better Shortness of breath Cough No edema No chest pain No abdominal pain Hughes removed Objective - Vital Signs Vital signs: Vital Signs Temp Pulse Pulse Resp BP Pulse Ox 06/11/18 08:06 66 16 06/11/18 03:50 97.5 F 68 20 144/61 93 06/10/18 23:15 97.5 F 68 20 133/63 94 06/10/18 20:55 64 22 06/10/18 19:00 97.5 F 67 20 143/61 94 06/10/18 18:10 94 06/10/18 13:01 74 20 98 06/10/18 12:56 66 20 06/10/18 12:06 16 06/10/18 11:48 97.4 F 117 H 134/58 06/10/18 09:00 71 Intake and Output 06/10/18 06/11/18 06/11/18 21:59 05:59 13:59 Intake Total 850 400 50 Output Total 175 125 Balance 850 225 -75 Intake: IV 50 50 50 Zosyn 2.25 gm In Dextrose 5% in 50 50 50 Water 50 ml @ 100 mls/hr IV Q6H [facility] Rx#:[id number] Oral 800 350 Output: Void Amount 175 125 Other: Meal Breakfast Percent of Meal Consumed 100% Urine Appearance Clear Clear Urine Color Bright Yellow Pale Stool Size Small Moderate Stool Color Brown Stool Consistency Soft # Voids 1 1 # Bowel Movements 1 1 Weight 207 lb 11.2 oz Intake & Output: Intake & Output 06/10/18 06/11/18 06/11/18 21:59 05:59 13:59 Intake Total 850 400 50 Output Total 175 125 Balance 850 225 -75 Weight 207 lb 11.2 oz Intake: IV 50 50 50 Zosyn 2.25 gm In Dextrose 5% in 50 50 50 Water 50 ml @ 100 mls/hr IV Q6H [facility] Rx#:[id number] Oral 800 350 Output: Void Amount 175 125 Other: Meal Breakfast Percent of Meal Consumed 100% Urine Appearance Clear Clear Urine Color Bright Yellow Pale Stool Size Small Moderate Stool Color Brown Stool Consistency Soft # Voids 1 1 # Bowel Movements 1 1 - General Appearance General appearance: fatigue EENT: mucous membranes dry Neck: supple Respiratory: course breath sounds Cardiology: no edema Gastrointestinal: no tenderness Integumentary: warm and dry Neurologic: no focal deficit, alert and oriented x3 Musculoskeletal: no deformities Psychiatric: mood/affect appropriate, cooperative - Lab 06/11/18 07:08 06/11/18 07:07 Most recent lab results Calcium 10.0 mg/dl (8.6-10.4) 06/11/18 07:07 Phosphorus 2.7 mg/dL (2.7-4.5) 06/10/18 04:08 Magnesium 2.0 mg/dL (1.6-2.5) 06/10/18 04:08 Assessment and Plan (1) Acute on chronic renal failure Keny Paul is a 78-year-old male with coronary artery disease by calcificati ons on CT, chronic diastolic heart failure (Echo on 06/05/14: LVEF 55%, no segmental wall motion abnormalities, Grade I diastolic dysfunction), hypertension, hyperlipidemia, diabetes mellitus type 2, chronic kidney disease stage 3 (followed by Dr. Del Valle), chronic anemia due to kidney disease and iron deficiency, admitted on 06/06/18 for pneumonia. Acute kidney injury on chronic kidney disease stage 3, with metabolic acidosis, present on arrival. Work up: US Renal on 06/09/18: Hyperechoic kidneys compatible with medical renal disease. Scattered simple cysts both kidneys - stable. Normal urinary bladder and prostate. Progress: Urine output: 175 ml reported in the past 24 hours after Hughes catheter removal. Creatinine decreased from 3.1 to 2.5 in the past 24 hours. Metabolic acidosis, improved with Sodium Bicarbonate 1300 mg PO TID. No significant fluid overload. No uremic symptoms. Plan: No acute hemodialysis need. Avoid NSAIDs, nephrotoxic medications and IV contrast. Monitor BMP and urine output. Status: Acute Priority: Medium Qualifiers: Acute renal failure type: unspecified Chronic kidney disease stage: stage 3 (moderate) Qualified Code(s): N17.9 - Acute kidney failure, unspecified; N18.3 - Chronic kidney disease, stage 3 (moderate) (2) Metabolic acidosis Please see above Status: Acute Priority: Medium
[2018-06-11] MEDS ORDERED: FUROSEMIDE 40 MG/4 ML VIAL IV ONE (11:40)
[2018-06-11] MEDS ORDERED: ALBUMIN HUMAN 12.5 GM/50 ML BAG IV ONE (11:40)
[2018-06-11] MEDS: VANCOMYCIN ORAL SOL 1,000 MG/10 ML BOTTLE PO SCH ×3 (15:05→21:17)
[2018-06-11] MEDS: FAMOTIDINE 20 MG TABLET PO SCH (21:18)
[2018-06-11] MEDS: SIMVASTATIN 20 MG TABLET PO SCH (21:18)
[2018-06-12] MEDS: IPRATROPIUM/ALBUTEROL 3 ML AMPUL.NEB NEB SCH ×4 (01:29→18:44)
[2018-06-12 05:08] LABS: Blood Urea Nitrogen 58 mg/dl (8-23)
[2018-06-12] MEDS: PIPERACILLIN SODIUM/TAZOBACTAM 2.25 GM in DEXTROSE 5% IN WATER 50 ML IV SCH ×4 (05:46→23:07)
[2018-06-12] MEDS: 0.9 % SODIUM CHLORIDE 10 ML SYRINGE IV SCH ×3 (05:46→20:14)
--- NOTE | 2018-06-12 07:15 | Nephrology Progress Note ---
Subjective Patient information: Note initiated : 06/12/18 at 7:13 am Patient: Keny Paul 78 y/o M admitted on 06/07/18 for Dizzy, Not Feeling Good. Chief Complaint: Weakness. Pertinent ROS: No edema No chest pain No abdominal pain Objective - Vital Signs Vital signs: Vital Signs Temp Pulse Pulse Pulse Resp BP Pulse Ox 06/12/18 04:00 98.2 F 74 16 153/65 93 06/11/18 23:54 97.5 F 70 18 147/64 93 06/11/18 20:00 97.9 F 70 18 147/58 95 06/11/18 19:20 93 06/11/18 18:40 78 20 06/11/18 16:09 94 06/11/18 15:49 98.1 F 18 116/65 92 06/11/18 13:49 76 16 06/11/18 12:00 97.4 F 75 18 124/60 94 06/11/18 11:57 62 06/11/18 11:51 97.7 F 62 135/60 95 06/11/18 08:35 67 33 H 95 06/11/18 08:15 97.7 F 67 68 33 H 140/56 95 06/11/18 08:06 66 16 Intake and Output 06/11/18 06/12/18 06/12/18 21:59 05:59 13:59 Intake Total 810 850 Output Total 750 925 Balance 60 -75 Intake: IV 50 50 Zosyn 2.25 gm In Dextrose 5% in 50 50 Water 50 ml @ 100 mls/hr IV Q6H [facility] Rx#:[id number] Oral 760 800 Output: Void Amount 750 300 Urine/Stool Mix 625 Other: Urine Appearance Clear Clear Urine Color Bright Yellow Bright Yellow Stool Size Large Large Stool Color Brown Brown Stool Consistency Soft Soft # Voids 1 # Bowel Movements 1 1 Weight 209 lb 6.4 oz Intake & Output: Intake & Output 06/11/18 06/12/18 06/12/18 21:59 05:59 13:59 Intake Total 810 850 Output Total 750 925 Balance 60 -75 Weight 209 lb 6.4 oz Intake: IV 50 50 Zosyn 2.25 gm In Dextrose 5% in 50 50 Water 50 ml @ 100 mls/hr IV Q6H [facility] Rx#:[id number] Oral 760 800 Output: Void Amount 750 300 Urine/Stool Mix 625 Other: Urine Appearance Clear Clear Urine Color Bright Yellow Bright Yellow Stool Size Large Large Stool Color Brown Brown Stool Consistency Soft Soft # Voids 1 # Bowel Movements 1 1 - General Appearance General appearance: fatigue EENT: mucous membranes dry Neck: supple Respiratory: course breath sounds Cardiology: no edema Gastrointestinal: no tenderness Integumentary: warm and dry Neurologic: no focal deficit, alert and oriented x3 Musculoskeletal: no deformities Psychiatric: mood/affect appropriate, cooperative - Lab 06/11/18 07:08 06/12/18 04:00 Most recent lab results Calcium 9.8 mg/dl (8.6-10.4) 06/12/18 04:00 Phosphorus 2.7 mg/dL (2.7-4.5) 06/10/18 04:08 Magnesium 2.0 mg/dL (1.6-2.5) 06/10/18 04:08 Assessment and Plan (1) Acute on chronic renal failure Keny Paul is a 78-year-old male with coronary artery disease by calcifications on CT, chronic diastolic heart failure (Echo on 06/05/14: LVEF 55%, no segmental wall motion abnormalities, Grade I diastolic dysfunction), hy pertension, hyperlipidemia, diabetes mellitus type 2, chronic kidney disease stage 3 (followed by Dr. Del Valle), chronic anemia due to kidney disease and iron deficiency, admitted on 06/06/18 for pneumonia. Acute kidney injury on chronic kidney disease stage 3, with initial metabolic acidosis, present on arrival. Work up: US Renal on 06/09/18: Hyperechoic kidneys compatible with medical renal disea se. Scattered simple cysts both kidneys - stable. Normal urinary bladder and prostate. Progress: Urine output: 1575 ml reported in the past 24 hours. Creatinine decreased from 2.5 to 2.4 in the past 24 hours. Metabolic acidosis, resolved with Sodium Bicarbonate 1300 mg PO TID. No significant fluid overload. No uremic symptoms. Plan: No acute hemodialysis need. Sodium Bicarbonate decreased to 6550 mg PO BID. Status: Acute Priority: Medium Qualifiers: Acute renal failure type: unspecified Chronic kidney disease stage: stage 3 (moderate) Qualified Code(s): N17.9 - Acute kidney failure, unspecified; N18.3 - Chronic kidney disease, stage 3 (moderate) (2) Metabolic acidosis Please see above Status: Resolved Priority: Medium
[2018-06-12] MEDS: CARVEDILOL 6.25 MG TABLET PO SCH ×2 (07:35→16:46)
[2018-06-12] MEDS: predniSONE 10 MG TABLET PO SCH (07:35)
[2018-06-12] MEDS: DOXAZOSIN 4 MG TABLET PO SCH (08:33)
[2018-06-12] MEDS: SODIUM BICARBONATE 650 MG TABLET PO SCH ×2 (08:33→20:16)
[2018-06-12] MEDS: ASPIRIN 81 MG TAB.CHEW PO SCH (08:33)
[2018-06-12] MEDS: FUROSEMIDE 40 MG TABLET PO SCH (08:33)
[2018-06-12] MEDS: HEPARIN 5,000 UNIT/ML VIAL SQ SCH ×2 (08:33→20:16)
[2018-06-12] MEDS: ALLOPURINOL 100 MG TABLET PO SCH (08:33)
[2018-06-12] MEDS: INSULIN LISPRO 1 UNIT/0.01 ML UNIT SQ SCH ×4 (08:34→20:15)
[2018-06-12] MEDS: INSULIN GLARGINE, HUMAN 1 UNIT/0.01 ML SQ SCH (08:34)
[2018-06-12] MEDS: VANCOMYCIN ORAL SOL 1,000 MG/10 ML BOTTLE PO SCH ×4 (08:38→20:14)
--- NOTE | 2018-06-12 13:56 | Internal Med Progress Note ---
Medical - PN: Subj Patient information: Note initiated : 06/12/18 at 1:52 pm Service Date, if different from initiated Date: [] Patient: Keny Paul a 78 y/o M admitted on 06/07/18 for Dizzy, Not Feeling Good. Chief Complaint: [] Interval history: Mr. Paul is a 78 year old M Who presented to the ED because of dizziness and not feeling well for the past for 5 days with diarrhea and some pain and he says lungs when coughing. Arrived with sats of 85% on room air. Patient reports about 2-3 weeks ago he started developing some cold symptoms sinus congestion and cough cough had some bloody mucus in it he also had shortness of breath especially with exertion. This has continued to progress his cough is productive which is a clear sputum now but last night he was so short of breath at he had to come in. He is also felt wheezy like he cannot get a deep breath. Has had some diarrhea,very weak and like lightheaded. Denies fever chills. He does have a history of chronic kidney disease stage III and receives Aranesp treatments every once in a while he says maybe every other month with Dr. Nash. He has history of mantle cell lymphoma diagnosed about a year ago and is following with [facility] and states they have not started treatment yet in her continue to watch him, sounds like he has a follow-up appointment in June. In the ED in triage was 85% on room air. Found to have left-sided dense infiltrate. He had leukocytosis, which she has a baseline but much higher. Renal function was little worse than usual. Blood pressure was okay. 06/08 Increased oxygen supplementation oximetric last night. But now down to 4 L nasal cannula with sats low 90s. He feels his cough is significantly decreased. He feels like his shortness of breath is also improved even though still requiring oxygen. Denies any other pains or complaints. 06/09 Patient states he feels better with no real cough and says his shortness of breath is better however he still on 4-6 L of either nasal cannula or oxygen mask. Nursing staff state he is better oxygenating when he sitting up. Urine output is low however he is urinated over the half few times over the past couple days, so we do not have accurate outputs. But his creatinine has not improved in fact is slightly worsened. Trying to obtain urine studies and Place [facility]. He renal ultrasound just finished. Chest x-ray with some interstitial edema. Will check BNP although likely to be abnormal in the setting of renal dysfunction and will try Lasix. As well as nephrology consult Denies any other complaints. 06/10 No overnight events. Patient feels a little better every day. Denies cough. Ambulated to the bathroom with minimal dyspnea. States he continues to feel better. No new complaints. Was on oxygen mask overnight, felt to be a mouth breather. When I went in there he took off his oxygen mask was sitting up in bed talking to me as sats are remaining around, anywhere from 91-93%. Lung sounds improved. Creatinine no improvement. Nephrology continues to follow 06/11 Patient feels like he is getting close to normal but not quite, was on 3L of nasal cannula last night. Denies cough. Worked well with physical therapy to day and did not feel short of breath. Overall improving. I's and O's are inaccurate as he has urinated over the hat and when the Hughes was and he was emptying the bag in the sink. 06/12 Patient seen examined, no acute issues, has been dressed and ready to be discharged He has had diarrhea, and stool studies have tested positive for Cdiff His wbc is still elevated and last chest x ray had shown worsening pna clinically however pt seems to be quite stable, he is off oxygen and eager to be discharged after discussing with him and his son the labs and need for further monitoring, he has agreed to stay one more day. Pertinent ROS: Denies headache, dizziness Denies chest pain, palpitations Denies cough or shortness of breath Denies abdominal pain, nausea or vomiting. Diarrhea present - Constitutional Vitals: Vital Signs Temp Pulse Resp BP Pulse Ox 97.1 F 79 22 136/59 94 06/12/18 12:00 06/12/18 13:16 06/12/18 13:16 06/12/18 12:00 06/12/18 13:16 Period Temp Pulse Resp BP Sys/Esposito Pulse Ox Last 24 Hr 97.1 F-98.2 F 59-79 16-22 116-153/58-65 92-95 Intake and Output 06/11/18 06/12/18 06/12/18 21:59 05:59 13:59 Intake Total 810 850 290 Output Total 750 925 400 Balance 60 -75 -110 Weight 209 lb 6.4 oz Intake & Output: Intake & Output 06/11/18 06/12/18 06/12/18 21:59 05:59 13:59 Intake Total 810 850 290 Output Total 750 925 400 Balance 60 -75 -110 Weight 209 lb 6.4 oz Intake: IV 50 50 50 Zosyn 2.25 gm In Dextrose 5% in 50 50 50 Water 50 ml @ 100 mls/hr IV Q6H [facility] Rx#:[id number] Oral 760 800 240 Output: Void Amount 750 300 400 Urine/Stool Mix 625 Other: Meal Breakfast Percent of Meal Consumed 100% Feeding Ability Independent Urine Appearance Clear Clear Urine Color Bright Yellow Bright Yellow Stool Size Large Large Large Stool Color Brown Brown Brown Stool Consistency Soft Soft Soft # Voids 1 1 # Bowel Movements 1 1 1 Exam: Constitutional; Afebrile, cooperative, alert, not in distress. Respiratory system: Air Entry equal on both sides, No crackles or wheezing, no rhonchi. CVS- Rate rhythm regular, S1,S2 heard, no gallop, no rub. Abdomen- Soft nontender abdomen, no organomegaly, no tenderness, no guarding or rigidity, [employer]- AOOx3, moving all extremities, no gross focal deficit noted. Medical - PN: Obj Da - Labs CBC & Chem 7: 06/11/18 07:08 06/12/18 04:00 Labs: Abnormal Lab Results 06/12/18 06/11/18 06/11/18 04:00 07:08 07:07 WBC 21.7 H RBC 3.00 L Hgb 8.4 L Hct 26.5 L RDW 15.4 H Gran % 23.8 L Lymph % (Auto) 69.5 H Lymph # (Auto) 15.1 H Cambria # (Auto) 1.3 H Seg Neutrophils % Lymphocytes % RBC Morphology Polychromasia Ovalocytes Carbon Dioxide 21 L BUN 58 H 62 H Creatinine 2.4 H 2.5 H Glucose 214 H 211 H Uric Acid ALT Alkaline Phosphatase Total Protein Albumin Albumin/Globulin Ratio Triglycerides 06/10/18 06/10/18 04:08 04:08 WBC 21.8 H RBC 2.80 L Hgb 7.9 L Hct 24.9 L RDW 15.0 H Gran % Lymph % (Auto) Lymph # (Auto) Camb[place] # (Auto) Seg Neutrophils % 22 L Lymphocytes % 74 H RBC Morphology Abnorm A Polychromasia 1+ A Ovalocytes 1+ A Carbon Dioxide 20 L BUN 67 H Creatinine 3.1 H Glucose 207 H Uric Acid 9.7 H ALT 45 H Alkaline Phosphatase 153 H Total Protein 5.0 L Albumin 2.1 L Albumin/Globulin Ratio 0.7 L Triglycerides 154 H Meds: Medications Albuterol/Ipratropium (Duoneb) 3 ml NEB Q6HRT [facility] Last Admin: 06/12/18 13:03 Dose: 3 ml Documented by: Albuterol/Ipratropium (Duoneb) 3 ml NEB Q4HP PRN PRN Reason: Shortness Of Breath Allopurinol (Zyloprim) 100 mg PO DAILY [facility] Last Admin: 06/12/18 08:33 Dose: 100 mg Documented by: Aspirin (Aspirin) 81 mg PO DAILY [facility] Last Admin: 06/12/18 08:33 Dose: 81 mg Documented by: Carvedilol (Coreg) 6.25 mg PO BIDCC [facility] Last Admin: 06/12/18 07:35 Dose: 6.25 mg Documented by: Dextrose (Dextrose 50%) 0 ml IV UD PRN PRN Reason: Hypoglycemia Diagnostic Test (Pha) (Accu-Chek) 1 each FS ACHS [facility] Last Admin: 06/12/18 11:46 Dose: 1 each Documented by: Doxazosin Mesylate (Cardura) 8 mg PO QDAY [facility] Last Admin: 06/12/18 08:33 Dose: 8 mg Documented by: Famotidine (Pepcid) 20 mg PO HS [facility] Last Admin: 06/11/18 21:18 Dose: 20 mg Documented by: Furosemide (Lasix) 40 mg PO DAILY [facility] Last Admin: 06/12/18 08:33 Dose: 40 mg Documented by: Glucose (Insta-Glucose) 15 gm PO PRN PRN PRN Reason: Hypoglycemia Heparin Sodium (Porcine) (Heparin) 5,000 unit SQ Q12 [facility] Last Admin: 06/12/18 08:33 Dose: 5,000 unit Documented by: Potassium Chloride 40 meq/ (Dextrose) 520 mls @ 130 mls/hr IV UD PRN PRN Reason: Potassium < 3 Piperacillin Sod/Tazobactam (Sod 2.25 gm/ Dextrose) 50 mls @ 100 mls/hr IV Q6H [facility] Last Admin: 06/12/18 11:48 Dose: 100 mls/hr Documented by: Insulin Glargine (Lantus) 10 unit SQ DAILY [facility] Last Admin: 06/12/18 08:34 Dose: 10 unit Documented by: Insulin Human Lispro (Humalog) 0 unit SQ ACHS [facility]; Protocol Last Admin: 06/12/18 12:00 Dose: 10 unit Documented by: Ondansetron HCl (Zofran) 4 mg IV Q4HP PRN PRN Reason: Nausea And Vomiting Prednisone (Prednisone) 10 mg PO QAMCC [facility] Last Admin: 06/12/18 07:35 Dose: 10 mg Documented by: Promethazine HCl (Phenergan) 0 mg PO Q6HP PRN PRN Reason: Nausea And Vomiting Simvastatin (Zocor) 20 mg PO QPM [facility] Last Admin: 06/11/18 21:18 Dose: 20 mg Documented by: Sodium Bicarbonate (Sodium Bicarbonate) 650 mg PO BID [facility] Last Admin: 06/12/18 08:33 Dose: 650 mg Documented by: Sodium Chloride (Saline Flush) 10 ml IV Q8 [facility] Last Admin: 06/12/18 05:46 Dose: 10 ml Documented by: Vancomycin HCl (Vancomycin Oral Fiona) 250 mg PO QID [facility]; Protocol Last Admin: 06/12/18 12:54 Dose: 2.5 ml Documented by: Medical - PN: A/P - Time Spent With Patient Total time spent is greater than 50% in coordination of care (as documented) at patient's floor/unit and/or counseling patient: - Narrative A/P Narrative: A: *PNA (NACHO/LLL dense consolidation noted on CT): -afebrile o/n, PCT improved *Left pleural effusion: -s/p thoracentesis (06/07) of 575cc, transudate by Light's criteria. -culter negative, cytology ___ *Acute on chronic systolic(45-50)/Diastolic(?III) CHF: -echo EF 45-50%, diastolic dysfxn, PAH moderate -i/o's inaccurate (patient missing hat and was dumping Hughes when it was in place) -CXR improving *Acute hypoxic respiratory failure: 2/2 above -weaning down O2 2-3L *?underlying COPD: *LYLE on CKD III: follows with dr. nash. Now Improving -no improvement -2.5<3.1<2.9<2.5<2.6 *Anemia, chronic: *Recent diagnosis of mantle cell lymphoma 1-yr ago: follows with [facility] *h/o leukocytosis: 2/2 mantle cell lymphoma: has upcoming appt with [facility] *HTN: on coreg/norvasc *Obesity: *DM: *BPH: on doxazosin *Clostridium Difficle Diarrhea P: Patient started on PO vancomycin yesterday, for cdiff diarrhea, likely explains persistent wbc elevation. -Abx, broadened (06/08) b/c of persistent fevers and PCT elevation, pt clinically is responding well to treatment, repeat X ray chest today -pending BC/SC -IS/Acapella -nephro following, appreciate their input. -s/p lasix -pleural fluid cytology pending -cont BB -monitor H&H -SSI -pt/ot -f/u with cancer center as scheduled -ppx: heparin Medical - PN: Qual - VTE Deep Vein Thrombosis/Pulmonary Embolism Present on Admission: No
--- NOTE | 2018-06-12 16:35 | XRay Report ---
CLINICAL INFORMATION: chf, pneumonia COMPARISON: 06/10/2018 FINDINGS: Moderate cardiomegaly is unchanged. Mediastinum is unremarkable. A vessels have returned to near normal caliber Left mid and basilar infiltrates have almost cleared. New small right basilar infiltrate noted. No effusion. IMPRESSION: 1. Mild CHF has improved from exam two days ago 2. There is complete resolution of left mid and lower lung infiltrates, but new small right basilar infiltrate has developed Interpreted and Authenticated by: Marcos Lopez 06/12/18
[2018-06-12] MEDS: SIMVASTATIN 20 MG TABLET PO SCH (20:16)
[2018-06-12] MEDS: FAMOTIDINE 20 MG TABLET PO SCH (20:16)
[2018-06-13] MEDS: IPRATROPIUM/ALBUTEROL 3 ML AMPUL.NEB NEB SCH ×2 (00:41→10:55)
[2018-06-13] MEDS: PIPERACILLIN SODIUM/TAZOBACTAM 2.25 GM in DEXTROSE 5% IN WATER 50 ML IV SCH ×2 (05:26→11:09)
[2018-06-13] MEDS: 0.9 % SODIUM CHLORIDE 10 ML SYRINGE IV SCH (05:26)
[2018-06-13] MEDS: INSULIN LISPRO 1 UNIT/0.01 ML UNIT SQ SCH ×2 (07:16→11:56)
[2018-06-13] MEDS: INSULIN GLARGINE, HUMAN 1 UNIT/0.01 ML SQ SCH (07:16)
[2018-06-13] MEDS: predniSONE 10 MG TABLET PO SCH (07:16)
[2018-06-13] MEDS: CARVEDILOL 6.25 MG TABLET PO SCH (07:16)
--- NOTE | 2018-06-13 08:26 | Nephrology Progress Note ---
Subjective Patient information: Note initiated : 06/13/18 at 8:24 am Patient: Keny Paul 78 y/o M admitted on 06/07/18 for Dizzy, Not Feeling Good. Chief Complaint: Weakness Pertinent ROS: No shortness of breath No edema Objective - Vital Signs Vital signs: Vital Signs Temp Pulse Pulse Resp BP Pulse Ox 06/13/18 07:21 95 06/13/18 07:15 98.1 F 77 20 130/58 95 06/13/18 06:00 78 92 06/13/18 02:59 97.8 F 80 22 160/68 92 06/12/18 23:05 98.3 F 75 24 H 169/68 91 06/12/18 19:45 91 06/12/18 19:16 98.2 F 77 16 148/66 93 06/12/18 18:53 70 20 06/12/18 16:00 72 18 118/60 92 06/12/18 13:16 79 22 94 06/12/18 13:15 74 22 06/12/18 12:00 97.1 F 62 16 136/59 95 Intake and Output 06/12/18 06/13/18 06/13/18 21:59 05:59 13:59 Intake Total 230 850 50 Output Total 525 850 Balance -295 0 50 Intake: IV 50 50 50 Zosyn 2.25 gm In Dextrose 5% in 50 50 50 Water 50 ml @ 100 mls/hr IV Q6H [facility] Rx#:[id number] Oral 180 800 Output: Void Amount 525 850 Other: Urine Appearance Clear Clear Urine Color Bright Yellow Bright Yellow Stool Size Moderate Stool Color Brown Stool Consistency Formed Loose # Bowel Movements 1 Weight 206 lb 4.8 oz Intake & Output: Intake & Output 06/12/18 06/13/18 06/13/18 21:59 05:59 13:59 Intake Total 230 850 50 Output Total 525 850 Balance -295 0 50 Weight 206 lb 4.8 oz Intake: IV 50 50 50 Zosyn 2.25 gm In Dextrose 5% in 50 50 50 Water 50 ml @ 100 mls/hr IV Q6H [facility] Rx#:[id number] Oral 180 800 Output: Void Amount 525 850 Other: Urine Appearance Clear Clear Urine Color Bright Yellow Bright Yellow Stool Size Moderate Stool Color Brown Stool Consistency Formed Loose # Bowel Movements 1 - General Appearance General appearance: fatigue EENT: mucous membranes moist Neck: supple Respiratory: rales Cardiology: no edema Gastrointestinal: no tenderness Integumentary: warm and dry Neurologic: no focal deficit, alert and oriented x3 Musculoskeletal: no deformities Psychiatric: mood/affect appropriate, cooperative - Lab 06/11/18 07:08 06/12/18 04:00 Most recent lab results Calcium 9.8 mg/dl (8.6-10.4) 06/12/18 04:00 Phosphorus 2.7 mg/dL (2.7-4.5) 06/10/18 04:08 Magnesium 2.0 mg/dL (1.6-2.5) 06/10/18 04:08 Assessment and Plan (1) Acute on chronic renal failure Keny Paul is a 78-year-old male with coronary artery disease by calcifications on CT, chronic diastolic heart failure (Echo on 06/05/14: LVEF 55%, no segmental wall motion abnormalities, Grade I diastolic dysfunction), hypertension, hyperlipidemia, diabetes mellitus type 2, chronic kidney disease stage 3 (followed by Dr. Del Valle), chronic anemia due to kidney disease and iron deficiency, admitted on 06/06/18 for pneumonia. Acute kidney injury on chronic kidney disease stage 3, with initial metabolic acidosis, present on arrival. Work up: US Renal on 06/09/18: Hyperechoic kidneys compatible with medical renal disease. Scattered simple cysts both kidneys - stable. Normal urinary bladder and prostate. Progress: Urine output: 1575 ml reported in the past 24 hours. Creatinine decreased from 2.5 to 2.4 in the past 24 hours. Metabolic acidosis, resolved with Sodium Bicarbonate 1300 mg PO TID. No significant fluid overload. No uremic symptoms. Plan: No acute hemodialysis need. Follow up with Dr. Del Valle after discharge. Status: Acute Priority: Medium Qualifiers: Acute renal failure type: unspecified Chronic kidney disease stage: stage 3 (moderate) Qualified Code(s): N17.9 - Acute kidney failure, unspecified; N18.3 - Chronic kidney disease, stage 3 (moderate)
[2018-06-13] MEDS: SODIUM BICARBONATE 650 MG TABLET PO SCH (09:34)
[2018-06-13] MEDS: VANCOMYCIN ORAL SOL 1,000 MG/10 ML BOTTLE PO SCH ×2 (09:34→12:45)
[2018-06-13] MEDS: HEPARIN 5,000 UNIT/ML VIAL SQ SCH (09:34)
[2018-06-13] MEDS: ASPIRIN 81 MG TAB.CHEW PO SCH (09:35)
[2018-06-13] MEDS: FUROSEMIDE 40 MG TABLET PO SCH (09:35)
[2018-06-13] MEDS: DOXAZOSIN 4 MG TABLET PO SCH (09:35)
[2018-06-13] MEDS: ALLOPURINOL 100 MG TABLET PO SCH (09:35)
[2018-06-13 09:38] LABS: Basophils # (Auto) 0.1 K/mcL (0.0-0.3); Basophils % (Auto) 0.2 % (0.0-2.0); Eosinophils # (Auto) 0.2 K/mcL (0.0-0.7); Eosinophils % (Auto) 0.7 % (0.0-7.0); Granulocytes % (Auto) 26.9 % (38.0-78.0); Lymphocytes # (Auto) 21.1 K/mcL (1.5-4.8); Lymphocytes % (Auto) 68.5 % (15.5-49.0); Mean Cell Volume 88.6 fL (80.0-100.0); Mean Corpuscular HGB Conc 31.5 g/dL (31.0-36.0); Monocytes # (Auto) 1.1 K/mcL (0.1-0.9); Monocytes % (Auto) 3.7 % (1.0-12.0); Platelet Count 268 K/mcL (140-440); RBC 3.17 M/mcL (4.50-5.90); Red Cell Distribution Width 15.7 % (11.5-14.5)
--- NOTE | 2018-06-13 11:37 | Discharge Summary ---
Medical - DS: Prov Patient information: Note initiated : 06/13/18 at 11:35 am Service Date, if different from initiated Date: [] Patient: Keny Paul 78 y/o M admitted on 06/07/18 for Dizzy, Not Feeling Good. Chief Complaint: [] Date of admission: 06/07/18 01:17 Discharge date: 06/13/18 Primary care physician: Aviva Crespo Consults: 06/06/18 Consult to Physician [CONS] Stat Comment: Consulting Provider: Ivan Martinez Reason For Exam: Physician to Consult 06/09/18 10:44 Consult to Physician [CONS] Routine Comment: Consulting Provider: Chris Barajas Reason For Exam: Physician to Consult Discharging clinician: Rosetta Elias Medical - DS: Meds - Discharge Medications Prescriptions: Vancomycin HCl 250 mg PO QID #56 cap Active and Home Medications: Home Medications aspirin 81 mg tablet,delayed release 81 mg PO QDAY tab 08/21/14 [History Confirmed 06/08/18 Last Taken 06/05/18] insulin lispro (U- 100) 100 unit/mL subcutaneous solution See Dose Instructions SUB-Q .COMPLEX #3 ml 05/01/15 [Rx Confirmed 06/08/18 Last Taken 06/08/18] simvastatin 20 mg tablet 20 mg PO QPM #90 tab 12/07/17 [Rx Confirmed 06/08/18 Last Taken 06/05/18] doxazosin 4 mg tablet 8 mg PO QDAY 90 Days #180 tab 01/01/18 [Rx Confirmed 06/08/18 Last Taken 06/05/18] furosemide 40 mg tablet 40 mg PO QDAY #90 tab 02/04/18 [Rx Confirmed 06/08/18 Last Taken 06/05/18] allopurinol 100 mg tablet 100 mg PO QDAY #90 tab 03/19/18 [Rx Confirmed 06/08/18 Last Taken 06/08/18] amlodipine 10 mg tablet 10 mg PO QDAY #90 tab 03/19/18 [Rx Confirmed 06/08/18 Last Taken 06/05/18] glipizide ER 5 mg tablet, extended release 24 hr 5 mg PO BID #180 tab 03/19/18 [Rx Confirmed 06/08/18 Last Taken 06/05/18] pioglitazone 30 mg tablet 30 mg PO QDAY #90 tab 03/19/18 [Rx Confirmed 06/08/18 Last Taken 06/05/18] carvedilol 12.5 mg tablet 12.5 mg PO BID #180 tab 05/19/18 [Rx Confirmed 06/08/18 Last Taken 06/05/18] cholecalciferol (vitamin D3) 400 unit capsule 400 unit PO .qod #20 cap 06/02/18 [Rx Confirmed 06/08/18 Last Taken 06/05/18] cyanocobalamin (vitamin B-12) 1,000 mcg capsule 1,000 mcg PO QDAY #30 cap 06/02/18 [Rx Confirmed 06/08/18 Last Taken 06/05/18] furosemide 40 mg tablet 40 mg PO QAM PRN #20 tab 06/02/18 [Rx Confirmed 06/08/18 Last Taken Unknown] Medical - DS: Hosp Hospital course: Mr. Paul is a 78 year old M Who presented to the ED because of dizziness and not feeling well for the past for 5 days with diarrhea and some pain and he says lungs when coughing. Arrived with sats of 85% on room air. Patient reports about 2-3 weeks ago he started developing some cold symptoms sinus congestion and cough cough had some bloody mucus in it he also had shortness of breath especially with exertion. This has continued to progress his cough is productive which is a clear sputum now but last night he was so short of breath at he had to come in. He is also felt wheezy like he cannot get a deep breath. Has had some diarrhea,very weak and like lightheaded. Denies fever chills. He does have a history of chronic kidney disease stage III and receives Aranesp treatments every once in a while he says maybe every other month with Dr. Del Valle. He has history of mantle cell lymphoma diagnosed about a year ago and is following with [facility] and states they have not started treatment yet in her continue to watch him, sounds like he has a follow-up appointment in June. In the ED in triage was 85% on room air. Found to have left-sided dense infiltrate. He had leukocytosis, which she has a baseline but much higher. Renal function was little worse than usual. Blood pressure was okay. 06/08 Increased oxygen supplementation oximetric last night. But now down to 4 L nasal cannula with sats low 90s. He feels his cough is significantly decreased. He feels like his shortness of breath is also improved even though still requiring oxygen. Denies any other pains or complaints. 06/09 Patient states he feels better with no real cough and says his shortness of breath is better however he still on 4-6 L of either nasal cannula or oxygen mask. Nursing staff state he is better oxygenating when he sitting up. Urine output is low however he is urinated over the half few times over the past couple days, so we do not have accurate outputs. But his creatinine has not improved in fact is slightly worsened. Trying to obtain urine studies and [facility]. He renal ultrasound just finished. Chest x-ray with some interstitial edema. Will check BNP although likely to be abnormal in the setting of renal dysfunction and will try Lasix. As well as nephrology consult Denies any other complaints. 06/10 No overnight events. Patient feels a little better every day. Denies cough. Ambulated to the bathroom with minimal dyspnea. States he continues to feel better. No new complaints. Was on oxygen mask overnight, felt to be a mouth breather. When I went in there he took off his oxygen mask was sitting up in bed talking to me as sats are remaining around, anywhere from 91-93%. Lung sounds improved. Creatinine no improvement. Nephrology continues to follow 06/11 Patient feels like he is getting close to normal but not quite, was on 3L of nasal cannula last night. Denies cough. Worked well with physical therapy today and did not feel short of breath. Overall improving. I's and O's are inaccurate as he has urinated over the hat and when the [facility] was and he was emptying the bag in the sink. 06/12 Patient seen examined, no acute issues, has been dressed and ready to be discharged He has had diarrhea, and stool studies have tested positive for Cdiff His wbc is still elevated and last chest x ray had shown worsening pna clinically however pt seems to be quite stable, he is off oxygen and eager to be discharged after discussing with him and his son the labs and need for further monitoring, he has agreed to stay one more day. 06/13 Patient seen and examined, no acute overnight events, he is ready for discharge. He notes his diarrhea is much better resolved. His WBC count has trended up to 30,000. Reviewed his previous WBC counts he does have a history of mantle cell cancer and his counts have always been elevated. He is also on 10 mg of prednisone which is contributing to this. X-ray of the abdomen to me does not appear to be concerning for toxic megacolon. Chest x-ray done yesterday shows resolution of left-sided infiltrate. The patient has completed his course of antibiotics for his pneumonia. He will be discharged on oral vancomycin for 2 weeks. No changes made to his chronic home medication list. Discharge diagnosis: Pneumonia, Cdiff - Time Spent with Patient Total time spent providing and/or coordinating discharge services: Greater than 30 minutes Medical - DS: Exam - Constitutional Vitals: Vital Signs Temp Pulse Pulse Resp BP Pulse Ox 06/13/18 11:16 66 18 126/56 92 06/13/18 07:21 95 06/13/18 07:15 98.1 F 77 20 130/58 95 06/13/18 06:00 78 92 06/13/18 02:59 97.8 F 80 22 160/68 92 06/12/18 23:05 98.3 F 75 24 H 169/68 91 06/12/18 19:45 91 06/12/18 19:16 98.2 F 77 16 148/66 93 06/12/18 18:53 70 20 06/12/18 16:00 72 18 118/60 92 06/12/18 13:16 79 22 94 06/12/18 13:15 74 22 06/12/18 12:00 97.1 F 62 16 136/59 95 Intake and Output 06/12/18 06/13/18 06/13/18 21:59 05:59 13:59 Intake Total 230 850 50 Output Total 525 850 Balance -295 0 50 Intake: IV 50 50 50 Zosyn 2.25 gm In Dextrose 5% in 50 50 50 Water 50 ml @ 100 mls/hr IV Q6H [facility] Rx#:[id number] Oral 180 800 Output: Void Amount 525 850 Other: Urine Appearance Clear Clear Urine Color Bright Yellow Bright Yellow Stool Size Moderate Stool Color Brown Stool Consistency Formed Loose # Bowel Movements 1 Weight 206 lb 4.8 oz Additional comments: Constitutional; Afebrile, cooperative, alert, not in distress. Respiratory system: Air Entry equal on both sides, No crackles or wheezing, no rhonchi. CVS- Rate rhythm regular, S1,S2 heard, no gallop, no rub. Abdomen- Soft nontender abdomen, no organomegaly, no tenderness, no guarding or rigidity, HEAD TRACK COACH- AOOx3, moving all extremities, no gross focal deficit noted. Medical - DS: Data Labs on day of discharge: Labs from last 24 hours 06/13/18 09:02 WBC 30.8 H* RBC 3.17 L Hgb 8.9 L Hct 28.1 L MCV 88.6 MCH 27.9 MCHC 31.5 RDW 15.7 H Plt Count 268 MPV 9.1 Gran % 26.9 L Lymph % (Auto) 68.5 H [place] % (Auto) 3.7 Eos % (Auto) 0.7 Baso % (Auto) 0.2 Gran # 8.3 H Lymph # (Auto) 21.1 H [place] # (Auto) 1.1 H Eos # (Auto) 0.2 Baso # (Auto) 0.1 Medical - DS: A/P - Patient/Caregiver Discharge Instructions Diet: Consistent Carbohydrate, Renal Additional Instructions: Please take vancomycin for four times a day for 14 days If you have fever, shortness of breath, chest pain or any other acute symptoms please go back to the emergency room I have not made changes in any of your chronic home medications please take them as prescribed by her regular doctor Please follow-up with your regular doctor in 1-2 weeks Please make sure that your regular doctor check your labs, complete blood count and ensure that they are stable - Follow up Plan Follow up with: Aviva Crespo ARNP [Primary Care Provider] - (Call your primary care doctor on Thursday to set up an appointment in 7-10 days.) Disposition: Home, Self-Care Prognosis: Fair Rehab Potential: Fair I certify that the patient requires SNF services: No Overall status at discharge: patient is progressing back to baseline Medical - DS: Qual - VTE Deep Vein Thrombosis/Pulmonary Embolism Present on Admission: No
--- NOTE | 2018-06-13 14:22 | XRay Report ---
CLINICAL INFORMATION: cdiff, rising wbc COMPARISON: None. FINDINGS: Stomach, small and large bowel are relatively decompressed. There is no free air, soft tissue mass, organomegaly or pathologic calcification. IMPRESSION: Relative decompression of the GI tract typically indicative of poor oral intake, nausea/vomiting and/or diarrhea. Small bilateral pleural effusions incidentally noted Interpreted and Authenticated by: Marcos Lopez 06/13/18
--- NOTE | 2018-06-15 12:42 | Non-GYN Cytology Report ---
NON BRANCH MANAGER TRAINEE SPECIMEN NG DX CATEGORY Negative MICROSCOPIC DIAGNOSIS PLEURAL FLUID, THORACENTESIS: -- LYMPHOHISTIOCYTIC INFLAMMATION. -- NO ATYPICAL OR MALIGNANT CELLS IDENTIFIED, SEE COMMENT. (EBD:mick) COMMENT: The patient's history of mantle cell lymphoma is noted ([id number], 12/31/2016). The thoracentesis fluid shows chronic lymphohistiocytic inflammation. By immunohistochemistry, CD68 highlights abundant macrophages while WT-1 and Calretinin highlight scattered background mesothelial cells. Immunohistochemical stains CD3 and CD20 for T-cells and B-cells, respectively, show more T-cells than B-cells compatible with a reactive process. No aberrant CD5 staining in B-cells is identified. All stains show adequate technical control. MICROSCOPIC DESCRIPTION Cytologic preparations of the pleural fluid show lymphohistiocytic chronic inflammation. No atypical or malignant cells are identified. (EBD:mick) Some of the tests reported here may not have been cleared or approved by the U.S. Food and Drug Administration (FDA). However, the FDA has determined that such clearance or approval is not necessary. Pursuant to the requirements of CLIA, this laboratory has established and verified the accuracy and precision of all tests, and additional information about these tests is available upon request. All technical controls are adequate. EXTERNAL COMMENT ~550 mL yellow fluid: 1 thinprep, 1 H/E, 1 Diff Quik, 1 Garcia Giemsa, 1 cell block Electronically Signed by: Ramya Kim M.D.
== END 2018-06-13 12:56 | disposition home or self-care (01) | DRG 193 ==
LOC: ED 22:06 → MEDSUR 06-07 01:17
PROVIDERS: ADMIT Internal Medicine; ATTEND Internal Medicine

== ENCOUNTER 2019-01-13 17:12 | Observation (INO) ==
--- NOTE | 2019-01-13 17:22 | Emergency Department Note ---
SOB HPI - General Chief Complaint: Shortness of Breath/Dyspnea Stated Complaint: shortness of breath Time Seen by Provider: 01/13/19 17:20 Source: patient Mode of arrival: ambulatory Limitations: no limitations - History of Present Illness This patient is sent over from radiology because of a pneumothorax 15 to 20% on the right side. Patient has a history of mental lymphoma for the last year and sees an oncologist in [place]. He has had some mild shortness of breath for a while and cannot pinpoint it. - Related Data Home Medications Medication Instructions Recorded Confirmed aspirin 81 mg tablet,delayed 81 mg PO QDAY tab 08/21/14 01/12/19 release cyanocobalamin (vitamin B-12) 2,000 mcg PO QDAY cap 07/09/18 01/12/19 1,000 mcg capsule doxazosin 2 mg tablet 2 mg PO QDAY 01/11/19 01/12/19 fluticasone fur. 100 mcg-umeclid 1 inh INHALATION QDAY 01/12/19 01/12/19 62.5 mcg-vilant 25 mcg inhalat.powder insulin lispro 100) 100 unit/mL See Dose Instructions SUB-Q 01/12/19 01/12/19 subcutaneous solution .COMPLEX PRN ml Previous Rx's Medication Instructions Recorded simvastatin 20 mg tablet 20 mg PO QPM #90 tab 12/07/17 cholecalciferol (vitamin D3) 400 800 unit PO QDAY #2 cap 07/09/18 unit capsule glipizide 5 mg tablet, extended 5 mg PO QDAY #90 tab 07/23/18 release 24 hr furosemide 40 mg tablet 40 mg PO BID #180 tab 08/18/18 pioglitazone 30 mg tablet 30 mg PO QDAY #90 tab 09/23/18 allopurinol 100 mg tablet 100 mg PO QDAY #90 tab 10/08/18 vancomycin 250 mg capsule 250 mg PO QID 10 Days #40 cap 01/05/19 amlodipine 5 mg tablet 5 mg PO QDAY #90 tab 01/06/19 vancomycin 250 mg capsule 250 mg PO .COMPLEX #60 cap 01/12/19 Allergies Allergy/AdvReac Type Severity Reaction Status Date / Time No Known Drug Allergies Allergy Verified 01/13/19 17:14 Review of Systems All systems ED: reviewed and negative except as stated. Past Medical History - Past Medical History PMFSH Narrative: Medical History (Last Reviewed 01/12/19 @ 14:43 by Ambrose Malagon CMA) Bladder cancer (Chronic ~1987) Diabetes mellitus (Chronic) COPD (chronic obstructive pulmonary disease) (Chronic) Abnormal chest xray (Chronic) Left carotid bruit (Chronic) Hyperbilirubinemia (Chronic) Low HDL (under 40) (Chronic) Electrocardiogram abnormal (Chronic) Chronic kidney disease, unspecified (Chronic) Decreased libido (Chronic) Gout (Chronic) Dementia (Chronic) Bilateral wrist pain (Chronic) Colonic polyp (Chronic) Diarrhea (Chronic) Mantle cell lymphoma (Chronic) Renal cysts, acquired, bilateral (Chronic) Secondary hyperparathyroidism of renal origin (Chronic) Acute on chronic combined systolic and diastolic CHF, 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) Diabetes mellitus, type II (Chronic) Hypertension (Chronic) History of bladder cancer (Chronic) Adenomatous colon polyp (Chronic) Pure hypercholesterolemia (Chronic) Dizziness (Chronic) Fatigue (Chronic) Edema (Chronic) History of malignant neoplasm of urinary organ (Acute) Proteinuria (Chronic) Vitamin A deficiency (Acute) Hyperlipidemia (Chronic) Obesity (Acute) Dysmetabolic syndrome X (Acute) Hypercalcemia (Chronic) Hypertensive chronic kidney disease (Chronic) DDD (degenerative disc disease), lumbar (Acute) Chronic kidney disease, stage III (moderate) (Chronic) Carpal tunnel syndrome (Acute) Bone/cartilage disorder (Acute) Back pain (Acute) Anemia, iron deficiency (Acute) Past Surgical History (Last Reviewed 01/12/19 @ 14:43 by Ambrose Malagon CMA) History of diverticulitis (Acute) History of colonoscopy (Acute ~12/04/16) History of cataract surgery (Acute) History of back surgery (Acute) History of hernia repair (Chronic) Family History (Last Reviewed 01/12/19 @ 14:43 by Ambrose Malagon CMA) Father Cardiac disease Diabetes mellitus Renal failure Mother Diabetes mellitus Renal failure Hypertension CVA (cerebral vascular accident) Glaucoma Sister Diabetes mellitus Son Diabetes mellitus Medical history: Reports: cancer, other (history of gout, history of lymphoma) Psychiatric history: Reports: no psych history Surgical history ED: Reports: non-contributory, other (umbilical hernia repair) - Social History smoking status: Former smoker Alcohol use: Reports: None Physical Exam Limitations: no limitations General appearance: alert Head: atraumatic Eye: Present: normal appearance ENT: Present: normal exam Neck: Present: normal inspection Chest: Present: normal inspection Respiratory: Present: decreased breath sounds (On the right side) Cardiovascular: Present: regular rate, normal rhythm, normal heart sounds Abdominal: Present: soft. Absent: distention, tenderness Neurological: Present: alert Psychiatric: Present: normal affect Skin: Present: warm, dry Course Vital Signs Temperature 97.3 F 01/13/19 17:12 Pulse Rate 81 01/13/19 17:12 Respiratory Rate 22 01/13/19 17:12 Blood Pressure 155/60 01/13/19 17:12 Pulse Oximetry (%) 91 01/13/19 17:12 Temperature 97.3 F 01/13/19 17:12 Pulse Rate 82 01/13/19 18:04 Respiratory Rate 35 H 01/13/19 18:04 Blood Pressure 147/50 01/13/19 18:04 Pulse Oximetry (%) 90 01/13/19 18:04 Shortness of Breath/Dyspnea - MDM Narrative Medical decision making narrative: I spoke with Dr. Bell the surgeon about this patient and we will admit him to the hospital for observation. - Lab Data Lab results reviewed: Yes I reviewed the patient's lab results. Result diagrams: 01/13/19 17:33 01/13/19 17:33 Lab Results 01/13/19 Range/Units 17:33 WBC 124.0 H* (4.5-11.0) K/mcL RBC 3.41 L (4.50-5.90) M/mcL Hgb 10.1 L (13.5-16.5) g/dL Hct 33.0 L (41.0-55.0) % MCV 96.8 (80.0-100.0) fL MCH 29.8 (26.0-34.0) pg MCHC 30.8 L (31.0-36.0) g/dL RDW 19.9 H (11.5-14.5) % Plt Count 134 L (140-440) K/mcL MPV 9.9 (7.4-10.4) fL Gran % 14.6 L (38.0-78.0) % Lymph % (Auto) 72.6 H (15.5-49.0) % [place] % (Auto) 12.1 H (1.0-12.0) % Eos % (Auto) 0.5 (0.0-7.0) % Baso % (Auto) 0.2 (0.0-2.0) % Gran # 18.1 H (1.8-8.0) K/mcL Lymph # (Auto) 90.0 H (1.5-4.8) K/mcL [place] # (Auto) 15.0 H (0.1-0.9) K/mcL Eos # (Auto) 0.6 (0.0-0.7) K/mcL Baso # (Auto) 0.2 (0.0-0.3) K/mcL Disposition Pt seen by SHIPPING TEAM LEADER/PA only: No Clinical Impression: Pneumothorax Disposition: Xfer As Outpt/Obs ([facility] [place]) Condition: Good Referrals: Vijaya Bell ARNP [Primary Care Provider] - Time of Disposition: 18:50
[2019-01-13 18:40] LABS: Basophils # (Auto) 0.2 K/mcL (0.0-0.3); Basophils % (Auto) 0.2 % (0.0-2.0); Eosinophils # (Auto) 0.6 K/mcL (0.0-0.7); Eosinophils % (Auto) 0.5 % (0.0-7.0); Granulocytes % (Auto) 14.6 % (38.0-78.0); Hemoglobin 10.1 g/dL (13.5-16.5); Lymphocytes % (Auto) 72.6 % (15.5-49.0); Mean Cell Volume 96.8 fL (80.0-100.0); Mean Corpuscular HGB Conc 30.8 g/dL (31.0-36.0); Mean Platelet Volume 9.9 fL (7.4-10.4); Monocytes % (Auto) 12.1 % (1.0-12.0); Platelet Count 134 K/mcL (140-440); RBC 3.41 M/mcL (4.50-5.90); Red Cell Distribution Width 19.9 % (11.5-14.5)
[2019-01-13] MEDS ORDERED: ONDANSETRON 4 MG/2 ML VIAL IV PRN (18:48)
[2019-01-13 18:53] LABS: ALT/SGPT 11 U/l (0-40); AST/SGOT 18 U/l (0-37); Albumin 2.7 gm/dL (3.2-5.2); Alkaline Phosphatase 146 U/L (39-117); Bilirubin,Total 0.4 mg/dL (0.0-1.0); Blood Urea Nitrogen 37 mg/dl (8-23); Carbon Dioxide 27 mmol/L (22-30); Chloride 106 mmol/L (96-108); Globulin 2.7 gm/dL (2.2-3.7); Glomerular Filtration Rate 37; Glucose 97 mg/dL (70-105)
[2019-01-13] MEDS ORDERED: HYDROmorphone 2 MG/ML VIAL IV PRN (21:29)
[2019-01-13] MEDS ORDERED: PROMETHAZINE 25 MG/ML VIAL IV PRN (21:29)
[2019-01-13] MEDS ORDERED: ACETAMINOPHEN 1,000 MG/100 ML BOTTLE IV PRN (21:30)
[2019-01-13] MEDS: 0.9 % SODIUM CHLORIDE 1,000 ML IV SCH (22:26)
--- NOTE | 2019-01-14 09:04 | XRay Report ---
HISTORY: Right-sided hydropneumothorax FINDINGS: Patient has a moderate size right-sided pleural effusion and a small left effusion. There is significant atelectasis or consolidation in the right lung with the greatest consolidation in the basilar segments and right middle lobe. Small right apical pneumothorax is present, less than 10% volume. There is no midline shift. The heart is partially obscured by the consolidation right lower thorax but is not grossly enlarged. Comparison with the CT scan done yesterday suggests right-sided pleural effusion is smaller now. The pneumothorax may have improved a small amount.. IMPRESSION: Persistent right-sided hydropneumothorax. Interpreted and Authenticated by: Lee Gamez 01/14/19
--- NOTE | 2019-01-14 16:42 | General Surg History&Physical ---
History of Present Illness Patient information: Note initiated : 01/14/19 at 4:34 pm Service Date, if different from initiated Date: [] Patient: Keny Paul a 79 y/o M admitted on 01/13/19 for shortness of breath. Chief Complaint: [] HPI: Mr. Paul is a 79 year old M admitted with small pneumothorax and moderate sized pleural effusion. The patient gives a history of having had shortness of breath for many weeks. There have been getting progressively worse so his primary care provider had a chest x-ray done which showed a small pneumothorax. A follow-up CT was done and this shows a 15-20% pneumothorax with a moderate sized layering pleural effusion. The patient has been admitted and is clinically stable at this time. A follow-up chest x-ray today suggests that the pneumothorax is less. He still has significant pleural effusion and is symptomatic with family. Activity in all. The patient has lymphocytic lymphoma with white count 70 120,000 230,000. Level. He's been scheduled for institution of chemotherapy but this has been withheld because he recently had C. difficile colitis. He's presently on vancomycin for treatment of the colitis. His bowel movements are semisolid small volumes. He's not had rectal bleeding. Discussed the patient's situation with Dr. Mccain and the plan will be to do CT-guided or ultrasound-guided thoracentesis with placement of a small Pleurx catheter to try to reduce his pneumothorax. Since the pleural effusion is probably not going to resolve a larger catheter would be minimally effective and would be difficult to remove because of the recurrent pleural effusion. The patient has had extreme dyspnea on exertion for quite some time and he has a chronic cough which is productive of sputum. The plan of treatment has been discussed with him and he is agreeable to have the procedures tomorrow. Review of Systems - Constitutional fatigue, malaise, weakness, weight loss - EENT Nose, mouth and throat: no dizziness, no vertigo - Cardiovascular chest pain at rest, dyspnea on exertion, lightheadedness, palpatations, paroxysmal nocturnal dyspnea - Respiratory cough, dyspnea on exertion, wheezing, chest congestion, excessive phlegm production, pain with cough - Gastrointestinal heartburn, nausea, no abdominal pain - Genitourinary urinary frequency, urinary incontinence - Musculoskeletal arthralgias, back pain, myalgias, stiffness - Integumentary no non-healing lesions, no pruritus, no rash - Neurological abnormal gait, confusion, dizziness, memory loss, syncope, tremor(s), weakness - Psychiatric anxiety, depression - Endocrine no polydipsia, no polyphagia, no polyuria - Hematologic/Lymphatic lymphadenopathy, no easy bleeding, no easy bruising - Allergic/Immunologic no tongue swelling, no throat swelling, no uticaria, no wheezing, no lip swelling Past History Past medical history: Diabetes mellitus. History of bladder cancer. Chronic kidney disease. Mental cell lymphoma. History of congestive heart failure. Hypertension. Degenerative disc disease. Chronic anemia Past surgical history: Lumbar back surgery 2. History of hernia repair. Past family history: Father age 94 due to complications of diabetes Mother age 87 due to complications of diabetes and heart heart disease. Sister due to complications of diabetes Past social history: Former smoker 60 years. Occasional use of alcohol Denies drug use Medications and Allergies Home Medications Medication Instructions Recorded Confirmed Type aspirin 81 mg tablet,delayed 81 mg PO QDAY tab 08/21/14 01/14/19 History release simvastatin 20 mg tablet 20 mg PO QPM #90 tab 12/07/17 01/14/19 Rx cholecalciferol (vitamin D3) 400 800 unit PO QDAY #2 cap 07/09/18 01/14/19 Rx unit capsule cyanocobalamin (vitamin B-12) 2,000 mcg PO QDAY cap 07/09/18 01/14/19 History 1,000 mcg capsule glipizide 5 mg tablet, extended 5 mg PO QDAY #90 tab 07/23/18 01/14/19 Rx release 24 hr furosemide 40 mg tablet 40 mg PO BID #180 tab 08/18/18 01/14/19 Rx pioglitazone 30 mg tablet 30 mg PO QDAY #90 tab 09/23/18 01/14/19 Rx allopurinol 100 mg tablet 100 mg PO QDAY #90 tab 10/08/18 01/14/19 Rx vancomycin 250 mg capsule 250 mg PO QID 10 Days #40 cap 01/05/19 01/14/19 Rx amlodipine 5 mg tablet 5 mg PO QDAY #90 tab 01/06/19 01/14/19 Rx doxazosin 2 mg tablet 2 mg PO QDAY 01/11/19 01/14/19 History fluticasone fur. 100 mcg-umeclid 1 inh INHALATION QDAY 01/12/19 01/14/19 History 62.5 mcg-vilant 25 mcg inhalat.powder insulin lispro 100) 100 unit/mL See Dose Instructions SUB-Q 01/12/19 01/14/19 History subcutaneous solution .COMPLEX PRN ml vancomycin 250 mg capsule 250 mg PO .COMPLEX #60 cap 01/12/19 01/14/19 Rx Allergies Allergy/AdvReac Type Severity Reaction Status Date / Time No Known Drug Allergies Allergy Verified 01/13/19 17:14 Exam Temp Pulse Resp BP Pulse Ox 97.5 F 81 20 156/56 98 01/14/19 12:00 01/14/19 03:38 01/14/19 12:00 01/14/19 12:00 01/14/19 12:00 - General physical appearance moderate distress, moderate pain, cachectic, chronically ill - Eyes PERRL, normal ocular movement - ENT normal pinna, normal nares, normal mucosa, no hearing loss, no congestion - Head Head exam IM: Present: atraumatic, normocephalic - Neck no masses, no bruits, trachea midline, no venous distension, other (bilateral cervical adenopathy) - Cardiovascular Cardiovascular exam IM: Present: normal rate and rhythm, RRR, +S1, +S2. Absent: JVD, tachycardia - Respiratory normal expansion, other (. Decreased breath sounds at bases, more prominent on right and left) - Abdomen Abdomen: Present: soft, tender, bowel sounds, organomegaly (. Tender enlarged spleen left upper quadrant; good active bowel sounds) Hernia: Present: none - Genitourinary Present: normal penis with no external lesions - Integumentary Present: no rash, no growths, no abnormal pigmentation - Neurologic Present: normal coordination, normal sensation - Musculoskeletal Present: normal gait, normal posture - Psychiatric Present: oriented to time, oriented to person, oriented to place, speech is normal, memory intact Assessment and Plan (1) Pneumothorax on right Patient will have Pleurx catheter placed tomorrow after thoracentesis. Status: Acute (2) Pleural effusion due to another disorder Thoracentesis to be done by radiology tomorrow Status: Acute (3) C. difficile colitis Continue on oral vancomycin therapy Status: Acute (4) History of malignant neoplasm of urinary organ Status: Acute (5) COPD (chronic obstructive pulmonary disease) Supplemental oxygen as needed Status: Chronic Qualifiers: COPD type: unspecified COPD Qualified Code(s): J44.9 - Chronic obstructive pulmonary disease, unspecified (6) Diabetes mellitus, type II Restart home medications and use sliding scale coverage as needed Status: Chronic (7) Hypertensive chronic kidney disease Status: Chronic (8) Mantle cell lymphoma Status: Chronic Comment: seen in [place] by dr. troy mcfadden Qualifiers: Lymphoma site: unspecified region Qualified Code(s): C83.10 - Mantle cell lymphoma, unspecified site
[2019-01-14] MEDS: VANCOMYCIN ORAL SOL 1,000 MG/10 ML BOTTLE PO SCH ×2 (17:12→21:19)
[2019-01-14] MEDS: 0.9 % SODIUM CHLORIDE 1,000 ML IV SCH (20:00)
[2019-01-14] MEDS: FUROSEMIDE 20 MG TABLET PO SCH (21:18)
[2019-01-15] MEDS: VANCOMYCIN ORAL SOL 1,000 MG/10 ML BOTTLE PO SCH ×4 (09:01→21:20)
[2019-01-15] MEDS: FUROSEMIDE 20 MG TABLET PO SCH ×2 (09:02→21:20)
[2019-01-15] MEDS: ALLOPURINOL 100 MG TABLET PO SCH (09:02)
[2019-01-15] MEDS: glipiZIDE 5 MG TAB.XL.24H PO SCH (09:02)
[2019-01-15] MEDS: amLODIPine 5 MG TABLET PO SCH (09:02)
[2019-01-15] MEDS: PIOGLITAZONE 15 MG TABLET PO SCH (09:02)
[2019-01-15] MEDS: DOXAZOSIN 1 MG TABLET PO SCH (09:02)
[2019-01-15 09:29] LABS: INR 1.1 (0.9-1.1)
--- NOTE | 2019-01-15 10:06 | XRay Report ---
HISTORY: Follow-up after right-sided thoracentesis FINDINGS: Small amount of residual pleural fluid is present at the right costophrenic sulcus. There has been partial reaeration of the right lung. There is a tiny right apical pneumothorax which has nearly but not completely resolved. Very small left-sided pleural effusion is present. The heart is mildly enlarged. IMPRESSION: Significantly improved aeration of the right lung and partial resolution of the right-sided pneumothorax following the preceding thoracentesis Interpreted and Authenticated by: Lee Gamez 01/15/19
--- NOTE | 2019-01-15 10:24 | Ultrasound Report ---
CLINICAL INFORMATION: Malignancy with right-sided hydropneumothorax and shortness of breath TECHNIQUE: The procedure and risks were explained the patient since falling patient identification. Large volume of pleural fluid was localized posteriorly and laterally in the right mid and lower thorax. The overlying skin was prepped with ChloraPrep then anesthetized with 1% lidocaine. Using ultrasound guidance a Yueh needle was inserted into the pleural space. 1750 cc of dark blood-tinged fluid was removed. Some of the fluid was sent to laboratory for analysis. In addition, there was some air which was aspirated through the catheter. A small to moderate amount of residual pleural fluid was present at the end of the procedure. It was decided to terminate the procedure before risking the development of pulmonary edema. IMPRESSION: Successful right-sided thoracentesis removing 1750 cc of pleural fluid and a small amount of air from the pleural space Interpreted and Authenticated by: Lee Gamez 01/15/19
[2019-01-15] MEDS ORDERED: DEXTROSE 31 GM ORAL.SUSP PO PRN (11:59)
[2019-01-15] MEDS ORDERED: DEXTROSE 50% 50 ML VIAL IV PRN (11:59)
--- NOTE | 2019-01-15 12:31 | General Surgery Progress Note ---
Subjective Patient reports: feels better, pain is less, flatus, bowel movement, afebrile Narrative: Note initiated : 01/15/19 at 12:29 pm Service Date, if different from initiated Date: [] Patient: Keny Paul 79 y/o M admitted on 01/13/19 for shortness of breath. Chief Complaint: [Patient is doing well. He had thoracentesis earlier today with removal of 1750 cc of bloody fluid. He states that he is able to breathe much better. He has less chest discomfort. Follow-up chest x-ray showed significant reduction in the pleural effusion with a very tiny apical pneumothorax.] Objective Temp Pulse Resp BP Pulse Ox 97.6 F 78 16 169/64 93 01/15/19 08:00 01/15/19 08:00 01/15/19 08:00 01/15/19 08:00 01/15/19 08:00 - Additional Data Intake & Output - Last 24 hours: Intake & Output 01/13/19 01/14/19 01/15/19 01/16/19 05:59 05:59 05:59 05:59 Intake Total 600 800 Output Total 0 Balance 0 600 800 Weight 182 lb 4.8 oz 188 lb - General physical appearance well developed, well nourished, no distress, chronically ill - Eyes PERRL, normal ocular movement - ENT normal pinna, normal nares, normal mucosa, no hearing loss, no congestion - Neck no masses, no bruits, trachea midline, no venous distension, other (bilateral cervical lymphadenopathy) - Respiratory normal expansion, normal respiratory effort, clear to auscultation, other ( significant mid junction and pelvis and right base with good air movement and air sounds at the right base; no pleural rub) - Cardiovascular Cardiovascular exam: Present: normal rate and rhythm, RRR, +S1, +S2. Absent: JVD, tachycardia - Abdomen non tender, bowel sounds (present), surgical scars (none), masses (none) - Integumentary no rash, no growths, no abnormal pigmentation - Neurologic normal coordination, normal sensation - Musculoskeletal normal gait, normal posture - Psychiatric oriented to time, oriented to person, oriented to place, speech is normal, memory intact - Labs 01/13/19 17:33 01/13/19 17:33 Assessment and Plan (1) Pneumothorax on right Status: Acute Assessment and plan: Clinically improved after thoracentesis and evacuation of air via radiology We'll check follow-up chest x-ray in the morning Current Visit: Yes (2) Pleural effusion due to another disorder Status: Acute Assessment and plan: Significant improvement after removal of 1750 cc of bloody fluid Current Visit: Yes (3) C. difficile colitis Status: Acute Assessment and plan: Abdominal exam is clinically benign without tenderness with regular bowel movements Current Visit: No (4) History of malignant neoplasm of urinary organ Status: Acute Current Visit: No (5) COPD (chronic obstructive pulmonary disease) Status: Chronic Current Visit: No (6) Diabetes mellitus, type II Status: Chronic Current Visit: No (7) Hypertensive chronic kidney disease Status: Chronic Current Visit: No (8) Mantle cell lymphoma Problem details: seen in [place] by dr. troy mcfadden Status: Chronic Current Visit: No - Time Spent With Patient Total time spent is greater than 50% in coordination of care (as documented) at patient's floor/unit and/or counseling patient:
[2019-01-15] MEDS: 0.9 % SODIUM CHLORIDE 1,000 ML IV SCH ×2 (14:12→15:21)
[2019-01-15] MEDS: INSULIN LISPRO 1 UNIT/0.01 ML UNIT SQ SCH ×2 (17:13→21:18)
[2019-01-16] MEDS: INSULIN LISPRO 1 UNIT/0.01 ML UNIT SQ SCH ×2 (07:32→11:44)
[2019-01-16] MEDS: DOXAZOSIN 1 MG TABLET PO SCH (08:23)
[2019-01-16] MEDS: PIOGLITAZONE 15 MG TABLET PO SCH (08:24)
[2019-01-16] MEDS: ALLOPURINOL 100 MG TABLET PO SCH (08:24)
[2019-01-16] MEDS: glipiZIDE 5 MG TAB.XL.24H PO SCH (08:24)
[2019-01-16] MEDS: amLODIPine 5 MG TABLET PO SCH (08:24)
[2019-01-16] MEDS: FUROSEMIDE 20 MG TABLET PO SCH (08:24)
[2019-01-16] MEDS: VANCOMYCIN ORAL SOL 1,000 MG/10 ML BOTTLE PO SCH ×2 (08:38→12:44)
[2019-01-16] MEDS: 0.9 % SODIUM CHLORIDE 1,000 ML IV SCH (11:31)
--- NOTE | 2019-01-16 14:39 | XRay Report ---
HISTORY: Follow-up right-sided hydropneumothorax FINDINGS: There is a very small residual right apical pneumothorax which is less than 5% volume. There are small bilateral subpulmonic pleural effusions. There is minor atelectasis in the lung bases adjacent to the pleural effusions. The mid and upper lung rasmussen are clear. The heart is borderline enlarged but has decreased in size since 01/15/19. No congestive heart failure is present. The atelectasis in the right lower lobe and volume of pleural fluid on both sides have diminished since 01/15/19. IMPRESSION: Less than 5% right apical pneumothorax which is stable. Improving bilateral pleural effusions and resolving atelectasis in the right lower lobe Interpreted and Authenticated by: Lee Gamez 01/16/19
--- NOTE | 2019-01-16 14:48 | Discharge Summary ---
Providers - Providers Patient information: Note initiated : 01/16/19 at 2:46 pm Service Date, if different from initiated Date: [] Patient: Keny Paul 79 y/o M admitted on 01/13/19 for shortness of breath. Chief Complaint: [] Date of admission: 01/13/19 Discharge date: 01/16/19 Attending physician: Sapphire Bell Hospitalization Hospital Course: 79-year-old male admitted with a small pneumothorax and moderate sized pleural effusion. The patient has a history of mantle cell lymphoma. He's been scheduled for chemotherapy but this has been withheld because of recent episode of Clostridium difficile colitis. He has been on oral vancomycin for this. He gives a history of having shortness of breath for many weeks. Because of this his primary care provider had a chest x-ray performed which showed a small pneumothorax and a CT showed a moderate sized layering pleural effusion. Because of the increasing shortness of breath the patient was admitted on the evening of 13 January. On the the pneumothorax was better but it appeared that the effusion had increased. I discussed the situation with radiology and the radiologist. Ultrasound-guided thoracentesis with drainage of 1750 cc of bloody fluid. He also aspirated air which reduced and pneumothorax. There is pneumothorax is now less than 5% is clinically stable. He is not having reaccumulation of the pleural effusion at this time. His bowel movements had become stable and no longer has diarrhea. He still has major leukocytosis related to the mantle cell lymphoma. He is clinically stable at this time and is discharged home to have follow-up with his primary care provider in one week. Discharge diagnosis: right pleural effusion Secondary discharge diagnosis: Right pneumothorax Mantle cell lymphoma Clostridium difficile colitis Diabetes mellitus Hypertension History of bladder cancer History of congestive heart failure Reason for admission: acute shortness of breath and chest discomfort Procedures: Ultrasound-guided thoracentesis right chest Pertinent studies/significant findings: CT of chest Complications: None Exam Temp Pulse Resp BP Pulse Ox 98.6 F 68 20 139/61 97 01/16/19 12:00 01/15/19 20:00 01/16/19 12:00 01/16/19 12:00 01/16/19 12:00 - General physical appearance well developed, well nourished, no distress, chronically ill - Eyes PERRL, normal ocular movement - ENT normal pinna, normal nares, normal mucosa, no hearing loss, no congestion - Head Head exam IM: Present: atraumatic, normocephalic - Neck no masses, no bruits, trachea midline, no lymphadenopathy, no venous distension - Cardiovascular Cardiovascular exam IM: Present: normal rate and rhythm - Respiratory normal expansion, normal respiratory effort, other (decreased breath sounds at both bases; slightly worse on the right side; no pleural rub) - Abdomen Abdomen: Present: soft, non tender, bowel sounds Hernia: Present: none - Genitourinary Present: normal penis with no external lesions - Integumentary Present: no rash, no growths, no abnormal pigmentation - Neurologic Present: normal coordination, normal sensation - Musculoskeletal Present: normal gait, normal posture - Psychiatric Present: oriented to time, oriented to person, oriented to place, speech is normal, memory intact Discharge Plan - Patient/Caregiver Discharge Instructions Activity: increase activity as tolerated Diet: Consistent Carbohydrate Additional Instructions: Chest x-ray in 1 week Follow-up with Keiry Bell. Primary care provider after chest x-ray is completed Stool sample to be sent for C. difficile at the time that he follows up with Keiry Bell Continue with the vancomycin that you would taking prior to admission - Follow up Plan Follow up with: Vijaya Bell ARNP [Primary Care Provider] - Disposition: Home, Self-Care Prognosis: Good Rehab Potential: Good I certify that the patient requires SNF services.: No Overall status at discharge: patient is not back to baseline Pending Studies Resuscitation Status Full Code Diet Regular Diet Start Sat Jan 15 1114 Allopurinol (Zyloprim) 100 mg PO QDAY [facility] Last Admin: 01/16/19 08:24 Dose: 100 mg Documented by: Admin: 01/15/19 09:02 Dose: 100 mg Documented by: [email or web address] Amlodipine Besylate (Norvasc) 5 mg PO QDAY [facility] Last Admin: 01/16/19 08:24 Dose: 5 mg Documented by: Admin: 01/15/19 09:02 Dose: 5 mg Documented by: [email or web address] Diagnostic Test (Pha) (Accu-Chek) 1 each FS ACHS [facility] Last Admin: 01/16/19 11:31 Dose: 1 each Documented by: [email or web address] Admin: 01/16/19 07:32 Dose: 1 each Documented by: Admin: 01/15/19 21:18 Dose: 1 each Documented by: Admin: 01/15/19 17:12 Dose: 1 each Documented by: [email or web address] Doxazosin Mesylate (Cardura) 2 mg PO QDAY [facility] Last Admin: 01/16/19 08:23 Dose: 2 mg Documented by: Admin: 01/15/19 09:02 Dose: 2 mg Documented by: [email or web address] Furosemide (Lasix) 40 mg PO BID [facility] Last Admin: 01/16/19 08:24 Dose: 40 mg Documented by: Admin: 01/15/19 21:20 Dose: 40 mg Documented by: Admin: 01/15/19 09:02 Dose: 40 mg Documented by: Admin: 01/14/19 21:18 Dose: 40 mg Documented by: NEW Glipizide (Glucotrol Xl) 5 mg PO QDAY [facility] Last Admin: 01/16/19 08:24 Dose: 5 mg Documented by: Admin: 01/15/19 09:02 Dose: 5 mg Documented by: [email or web address] Sodium Chloride (Sodium Chloride 0.9%) 1,000 mls @ 50 mls/hr IV .Q20H [facility] Last Admin: 01/16/19 11:31 Dose: 50 mls/hr Documented by: [email or web address] Infusion: 01/16/19 11:21 Dose: 50 mls/hr Documented by: [email or web address] Admin: 01/15/19 15:21 Dose: 50 mls/hr Documented by: [email or web address] Admin: 01/15/19 14:12 Dose: Not Given Documented by: [email or web address] Admin: 01/14/19 20:00 Dose: Not Given Documented by: Infusion: 01/14/19 18:26 Dose: 50 mls/hr Documented by: [email or web address] Admin: 01/13/19 22:26 Dose: 50 mls/hr Documented by: NEW Insulin Human Lispro (Humalog) 0 unit SQ ACHS [facility]; Protocol Last Admin: 01/16/19 11:44 Dose: 4 unit Documented by: [email or web address] Admin: 01/16/19 07:32 Dose: Not Given Documented by: Admin: 01/15/19 21:18 Dose: Not Given Documented by: Admin: 01/15/19 17:13 Dose: Not Given Documented by: [email or web address] Trelegy Ellipta (Inhaler) 1 dose INH DAILY [facility] Last Admin: 01/16/19 08:25 Dose: Not Given Documented by: Admin: 01/15/19 08:47 Dose: Not Given Documented by: [email or web address] Pioglitazone HCl (Actos) 30 mg PO DAILY [facility] Last Admin: 01/16/19 08:24 Dose: 30 mg Documented by: Admin: 01/15/19 09:02 Dose: 30 mg Documented by: [email or web address] Vancomycin HCl (Vancomycin Oral Fiona) 250 mg PO QID [facility]; Protocol Last Admin: 01/16/19 12:44 Dose: 250 mg Documented by: Admin: 01/16/19 08:38 Dose: 250 mg Documented by: Admin: 01/15/19 21:20 Dose: 250 mg Documented by: [email or web address] Admin: 01/15/19 17:12 Dose: 250 mg Documented by: Admin: 01/15/19 14:11 Dose: 250 mg Documented by: [email or web address] Admin: 01/15/19 09:01 Dose: 250 mg Documented by: [email or web address] Admin: 01/14/19 21:19 Dose: 250 mg Documented by: Admin: 01/14/19 17:12 Dose: 250 mg Documented by: [email or web address] Shift Summary 01/16/19 14:21 Shift Summary by Tayler Adler Pt A&Ox4 and able to make needs known. Pt is independent in his room and able to manage his IV pole with no complications. VSS on RA but pt does have O2 per nasal cannula that he applies himself PRN when he feels he needs it. Pt still having occasional loose stools and is in contact-enteric precautions due to C- Diff and PT is aware of this. Pt is taking oral vancomycin and tolerating it well. Will update at bedside. Initialized on 01/16/19 14:21 - END OF NOTE
== END 2019-01-16 15:56 | disposition home or self-care (01) ==
LOC: ED 17:12 → MEDSUR 17:12
PROVIDERS: ADMIT Family Medicine Adult Medicine; ATTEND Family Medicine Adult Medicine